=== PATIENT | female | born 1945 | race Caucasian/White ===

== ENCOUNTER 2020-05-26 14:25 | Outpatient (REF) | payer MEDICARE, SELFPAY ==
--- NOTE | 2020-05-26 14:31 | XR_ITS ---
EXAMINATION: XR KNEE, RIGHT CLINICAL INFORMATION: Right knee pain COMPARISON: Right lower leg x-ray November 2009 TECHNIQUE: Four views of the right knee. FINDINGS: Bone alignment is normal. No fracture or dislocation is seen. Joint spaces are normal. There is no joint effusion. There is evidence of atherosclerotic disease. XR/XR knee RT 4V IMPRESSION: Atherosclerotic disease otherwise unremarkable exam.
== END 2020-05-26 14:26 | disposition home or self-care (01) ==
LOC: HO.HMGCX 14:25
PROVIDERS: PCP Family Medicine; Visit Provider Nurse Practitioner Family
DX: M25.561 Pain in right knee (principal)
CPT/HCPCS: 73564

== ENCOUNTER → 2020-06-12 10:02 | Outpatient (BNVA) | payer MEDICARE, SELFPAY | PROVIDERS: PCP Family Medicine; Visit Provider Urology | DX: N30.10 Interstitial cystitis (chronic) without hematuria (principal) | CPT/HCPCS: 51798; 81002; 99212 ==

== ENCOUNTER → 2020-11-11 12:58 | Outpatient (BNVA) | payer MEDICARE, SELFPAY | PROVIDERS: PCP Family Medicine; Referring Provider Family Medicine; Visit Provider Internal Medicine Cardiovascular Disease | DX: I25.10 Atherosclerotic heart disease of native coronary artery without angina pectoris (principal); I51.81 Takotsubo syndrome; I10 Essential (primary) hypertension | CPT/HCPCS: 93005; 99212 ==

== ENCOUNTER → 2020-12-12 09:14 | Outpatient (BNVA) | payer MEDICARE, SELFPAY | PROVIDERS: PCP Family Medicine | DX: N30.10 Interstitial cystitis (chronic) without hematuria (principal) | CPT/HCPCS: 99212 ==

== ENCOUNTER → 2020-12-15 11:00 | Outpatient (BNVA) | payer MEDICARE, SELFPAY | PROVIDERS: PCP Family Medicine | CPT/HCPCS: Q3014 ==

== ENCOUNTER 2021-03-17 09:24 | Outpatient (REF) | payer MEDICARE, SELFPAY | END 2021-03-17 09:25 | disposition home or self-care (01) | LOC: HO.LAB 09:24 | PROVIDERS: PCP Family Medicine | DX: N30.10 Interstitial cystitis (chronic) without hematuria (principal) | CPT/HCPCS: 51798; 87086; 87088; 87186; 99212 ==

== ENCOUNTER → 2021-05-19 09:47 | Outpatient (BNVA) | payer MEDICARE, SELFPAY | PROVIDERS: PCP Family Medicine | DX: N30.10 Interstitial cystitis (chronic) without hematuria (principal) | CPT/HCPCS: 51798; 81002; 99212 ==

== ENCOUNTER → 2021-07-03 14:48 | Outpatient (BNVA) | payer MEDICARE, SELFPAY | PROVIDERS: PCP Family Medicine | DX: N30.10 Interstitial cystitis (chronic) without hematuria (principal) | CPT/HCPCS: 51798; 99212 ==

== ENCOUNTER → 2021-07-30 13:04 | Outpatient (BNVA) | payer MEDICARE, SELFPAY | PROVIDERS: PCP Family Medicine | DX: N30.10 Interstitial cystitis (chronic) without hematuria (principal); R35.1 Nocturia | CPT/HCPCS: Q3014 ==

== ENCOUNTER → 2021-10-15 12:51 | Outpatient (REF) | payer MEDICARE, SELFPAY ==
--- NOTE | 2021-10-15 12:53 | CA_ITS ---
Transthoracic Echocardiogram Patient (Last, First, Middle): Shana Lopez L Gender: Female Date of : 1945 Age: 76 Procedure Date: 10/15/2021 Procedure Type: Transthoracic Echocardiogram Location: OP Height: 139.7 cm Weight: 39.92 kg BSA: 1.24 m2 Heart Rate: bpm BP: 130 / 62 mmHg Labor Delivery Specialist: IAN Referring MD: Chin Lind MD Plastic Frame Inserter: Chin Lind MD Symptoms: I51.81 - Takotsubo syndrome Study Quality: Adequate ECG Rhythm: Sinus Conclusions: - 1. Normal LV systolic function with impaired relaxation filling pattern next 2. Normal cardiac valvular Doppler 3. Normal RV systolic pressure 4. No gross pericardial effusion Findings Left Ventricle Normal left ventricular size, thickness, and systolic function. The visually estimated ejection fraction is between 65-70%. Spectral Doppler is indicative of an impaired relaxation filling pattern. E/E prime ratio is between 8 and 15 consistent with indeterminate filling pressures. Right Ventricle Normal right ventricular cavity size and systolic function. Atria Both atria are normal in size. Interatrial shunt cannot be excluded. Aortic Valve The aortic valve structure and function is likely normal. There is no aortic valve stenosis. There is no aortic valve regurgitation. Mitral Valve Normal mitral valve structure and function. There is trace mitral valve regurgitation. There is no mitral valve stenosis. Pulmonic Valve The pulmonic valve was not well visualized. Tricuspid Valve Likely normal tricuspid valve structure and function. There is trace tricuspid valve regurgitation. The right ventricular systolic pressure is normal. The right ventricular systolic pressure is 25 mmHg. Normal right atrial pressure. There is no evidence of pulmonary hypertension. Great Vessels All visible segments of the aorta are normal in size. The pulmonary artery was not well visualized. Venous The inferior vena cava is normal in size and collapses greater than 50% with inspiration. Pericardium/Pleural There is no evidence of pericardial effusion. Measurements 2D Linear Measurements IVSd: 0.69 0.6-0.9/0.6-1.0 cm LVIDd: 4.04 3.9-5.3/4.2-5.9 cm LVIDd Index: 3.26 2.4-3.2/2.2-3.1 cm/m2 LVIDs: 2.83 2.0-3.6 cm LVPWd: 0.82 0.7-1.1 cm LA Diam: 2.70 2.7-3.8/3.0-4.0 cm LAIDs Index: 2.18 1.5-2.3 cm/m2 LV Mass: 109.22 67-162/88-224 g LV Mass Index: 88.08 43-95/49-115 g/m2 LVOT Diam: 1.70 3.0+(-)1.3 cm 2D Systolic Function EF 4C: 72.20 >55% EF 2C: 64.40 >55% EF BiP: 68.30 >55% Mitral Valve MV Pk E: 0.76 MV PK A: 0.58 MV Decel Time: 239.00 E/A: 1.30 E'Lateral: 8.70 E'Medial: 7.83 E/E' Med: 9.70 E/E' Lat: 8.80 PHT: 70.00 MVA PHT: 3.14 Decel Woodruff: 3.19 Aortic Valve AoV Pk Micheal: 1.07 AoV Mn Micheal: 0.82 AoV VTI: 0.30 AoV Pk Grad: 5.00 Aov Mn Grad: 3.00 TORRI Cont.VTI: 1.42 LVOT LVOT Pk Micheal: 0.80 LVOT Mn Micheal: 0.50 LVOT VTI: 0.19 LVOT Pk Grad: 3.00 LVOT Mn Grad: 1.00 LVOT Diam: 1.70 LVOT Area: 2.27 Diastolic Function MV Pk E: 0.76 MV Pk A: 0.58 E/A: 1.30 E'Medial: 7.83 E/E' Med: 9.70 E' Laterial: 8.70 E/E' Lat: 8.80 Right Ventricle TAPSE (mm): 24.30 TVS' Micheal: 10.20 Tricuspid Valve TR Pk Micheal: 2.33 TR Pk Grad: 22.00 RA Press: 3.00 RVSP: 25.00 Great Vessels Aorta Sinus of Valsalva: 2.89 2.0-3.[address] Ridge: 2.26 1.7-3.4 cm Ao Asc: 2.70 2.1-3.4 cm Ao Arch: 2.70 Updated in Other Vendor System with Status of Final Chin Lind MD electronically signed on 10/16/2021 3:08:45 PM with status of Final
== END ==
LOC: HO.CARD 12:51
PROVIDERS: PCP Family Medicine; Visit Provider Internal Medicine Cardiovascular Disease
DX: I51.81 Takotsubo syndrome (principal)
CPT/HCPCS: 93306

== ENCOUNTER → 2021-11-17 13:14 | Outpatient (BNVA) | payer MEDICARE, SELFPAY | PROVIDERS: PCP Family Medicine; Referring Provider Family Medicine; Visit Provider Internal Medicine Cardiovascular Disease | DX: I25.10 Atherosclerotic heart disease of native coronary artery without angina pectoris (principal); I51.81 Takotsubo syndrome; Z79.899 Other long term (current) drug therapy | CPT/HCPCS: 93005; 99212 ==

== ENCOUNTER → 2021-12-14 13:39 | Outpatient (BNVA) | payer MEDICARE, SELFPAY | PROVIDERS: PCP Family Medicine | DX: R35.0 Frequency of micturition (principal) | CPT/HCPCS: 51798; 99212 ==

== ENCOUNTER 2022-02-27 11:05 | Outpatient (REF) | payer MEDICARE, SELFPAY ==
[2022-02-27 13:58] LABS: Appearance Urine Clear; Color Urine Dark Yellow; Glucose Urine UA Negative (Negative); Leukocyte Esterase Urine Negative (Negative); Nitrite Urine Positive (Negative); PH 6.5 (5.0-9.0); UMIC TRIGGER UA YES; Urine Blood Negative (Negative); Urine Ketones Negative (Negative); Urine Protein Negative (Neg-Trace)
[2022-02-27 14:22] LABS: Bacteria Urine None Seen (None Seen); Hyaline Casts Urine 0-2 /LPF (0-2); RBC Urine 0-2 /HPF (0-2); Squamous Epithelial Cell Urine 0-2 /HPF (0-2); WBC Urine 0-5 /HPF (0-5)
== END 2022-02-27 11:06 | disposition home or self-care (01) ==
LOC: HO.HMGCLDS 11:05
PROVIDERS: Visit Provider Urology
DX: R35.0 Frequency of micturition (principal)
CPT/HCPCS: 81001; 87086

== ENCOUNTER → 2022-04-01 10:55 | Outpatient (BNVA) | payer MEDICARE, SELFPAY | PROVIDERS: PCP Family Medicine; Visit Provider Urology | DX: R35.0 Frequency of micturition (principal); N30.10 Interstitial cystitis (chronic) without hematuria | CPT/HCPCS: 51798; 99212 ==

== ENCOUNTER 2022-05-04 10:18 | Outpatient (REF) | payer MEDICARE, SELFPAY ==
--- NOTE | ~2022-05-04 | US_ITS ---
EXAMINATION: US RETROPERITONEAL LIMITED (RENAL ONLY) CLINICAL INFORMATION: Frequency of micturition. COMPARISON: Ultrasound abdomen of 02/13/2009 TECHNIQUE: Real-time imaging of the kidneys. FINDINGS: RIGHT KIDNEY: 8.7 x 3.6 x 4.1 cm (SAG x AP x TRV). No hydronephrosis. No renal calculi. Limited visualization. LEFT KIDNEY: 8.8 x 3.8 x 4.8 cm (SAG x AP x TRV). No hydronephrosis. No renal calculi. Limited visualization. Multiple parapelvic cysts, largest 2.1 x 0.9 x 2.2 cm appears simple. US/US renal BI IMPRESSION: 1. Multiple left parapelvic cysts. 2. No hydronephrosis. No renal calculi. Limited visualization.
== END 2022-05-04 10:19 | disposition home or self-care (01) ==
LOC: HO.HMGCX 10:18
PROVIDERS: PCP Family Medicine; Visit Provider Urology
DX: R35.0 Frequency of micturition (principal)
CPT/HCPCS: 76775

== ENCOUNTER → 2022-06-02 13:42 | Outpatient (BNVA) | payer MEDICARE, SELFPAY | PROVIDERS: PCP Family Medicine; Visit Provider Urology | DX: N30.10 Interstitial cystitis (chronic) without hematuria (principal); R35.0 Frequency of micturition; R39.89 Other symptoms and signs involving the genitourinary system; Z79.899 Other long term (current) drug therapy | CPT/HCPCS: Q3014 ==

== ENCOUNTER 2022-07-20 13:21 | Outpatient (REF) | payer MEDICARE, SELFPAY ==
--- NOTE | ~2022-07-20 | XR_ITS ---
EXAMINATION: XR RIBS, LEFT CLINICAL INFORMATION: Left front wall chest contusion. COMPARISON: Chest radiograph dated 03/15/2019. TECHNIQUE: 3 views of the left ribs were obtained along with a PA view of the chest. A skin marker overlies the left chest. FINDINGS: Lungs are clear. No consolidation, pneumothorax, or pleural effusion. The cardiomediastinal silhouette and pulmonary vasculature are normal. Osseous structures are unremarkable. Deformity is seen in the lateral left ninth rib. XR/XR ribs LT min 3V w CXR1V IMPRESSION: 1. No acute cardiopulmonary process. 2. Deformity in the lateral left ninth rib is appearance of an old healed fracture but was not seen on the 2019 study. Correlate with physical exam and trauma history.
== END 2022-07-20 13:22 | disposition home or self-care (01) ==
LOC: HO.HMGCX 13:21
PROVIDERS: PCP Family Medicine; Visit Provider Internal Medicine
DX: S20.212A Contusion of left front wall of thorax, initial encounter (principal)
CPT/HCPCS: 71101

== ENCOUNTER 2022-11-04 14:02 | Outpatient (REF) | payer MEDICARE, SELFPAY ==
--- NOTE | ~2022-11-04 | MR_ITS ---
EXAMINATION: MR THORACIC SPINE WITHOUT CONTRAST CLINICAL INFORMATION: 77-year-old with mid back pain and history of fall 07/20/2022. COMPARISON: 09/20/2011 x-ray report. Images not currently available. TECHNIQUE: MRI of the thoracic spine was obtained using routine sequences without contrast. FINDINGS: ALIGNMENT: There is sinusoidal thoracolumbar scoliotic curvature, slightly convex to the left at T8-T9 and convex to the right at T12-L1. There is grjb-xk-fyssgmge thoracic kyphosis centered at T6-T7. VERTEBRAL BODIES AND BONE MARROW: There is a compression fracture of the T7 vertebral body, with approximately 60% loss of height anteriorly, with mild marrow edema noted consistent with a nonhealed, likely a benign fracture. There is mild loss of height along the superior endplate of T6 consistent with a chronic, mild compression fracture deformity which was noted on the previous x-rays. Remaining vertebral body heights are well maintained. No suspicious marrow replacing process or other bone marrow edema. DISC SPACES AND ENDPLATES: There is multilevel disc desiccation, with mild degrees of intervertebral disc space height loss between T3-T4 and at T10-T11 inclusive, with minor degrees of multilevel anterior marginal spondylosis at these levels. Tiny Schmorl's nodes are noted at T9-T10. There is intradiscal vacuum disc phenomenon at T6-T7. PARASPINAL SOFT TISSUES: The paravertebral soft tissues appear unremarkable. No paravertebral soft tissue masses or fluid collections. There are probable small cysts in the liver. The visualized intrathoracic soft tissues demonstrate some nonspecific pleural-parenchymal changes along the posterior left upper lobe which could be postinflammatory. SPINAL CORD: The thoracic spinal cord is normal in morphology, caliber and signal intensity throughout. The conus terminates at the L1-L2 level. SPINAL LEVELS: C7-T1 through T4-T5: Unremarkable. T5-T6: Tiny central disc protrusion with minimal indentation of the ventral thecal sac without cord impingement or canal stenosis. T6-T7: Trace retropulsion of the posterior cortex of the compressed T7 vertebral body noted with slight indentation of the ventral thecal sac without cord impingement or canal stenosis. T7-T8: Tiny central to right paramedian/posterolateral disc protrusion without significant canal stenosis or cord impingement. T8-T9: Mild right-sided facet arthropathy noted with mild foraminal narrowing. T9-T10: Mild facet arthrosis bilaterally with partial ankylosis of the left facet joint with mild bilateral foraminal narrowing. T10-T11: Mild right and feam-vr-makugwml left-sided facet arthropathy noted with gnfj-af-pryxhswb left-sided foraminal narrowing. T11-T12: Small posterior disc osteophyte complex without cord impingement or canal stenosis. T12-L1: Tiny posterior disc osteophyte complex. MR/MR thoracic spine wo con IMPRESSION: 1. Nonhealed compression fracture of the T7 vertebral body as described above with trace retropulsion of the posterior cortex without spinal cord impingement. Likely a benign osteoporotic compression fracture. Correlate with bone mineral density. 2. Mild chronic compression fracture deformity of T6. 3. Thoracolumbar scoliotic curvature as described above with xbtv-qt-nnzrepwj thoracic kyphosis centered at T6-T7. 4. Mild multilevel DDD and spondylosis with tiny central disc protrusions at T5-T6 and T7-T8 and icrb-hw-tosnciyc degrees of multilevel facet arthropathy with tnwe-hw-irycmldw left-sided foraminal narrowing at T10-T11. 5. Normal appearance to the thoracic spinal cord. 6. Probable small cysts in the liver which can be confirmed sonographically if clinically warranted. Probable parapelvic renal cysts in the left kidney. See previous ultrasound report of 05/05/2022.
== END 2022-11-04 14:03 | disposition home or self-care (01) ==
LOC: HO.MRI 14:02
PROVIDERS: PCP Family Medicine; Visit Provider Nurse Practitioner Family
DX: S22.060A Wedge compression fracture of T7-T8 vertebra, initial encounter for closed fracture (principal); X58.XXXA Exposure to other specified factors, initial encounter; Y93.9 Activity, unspecified; Y92.9 Unspecified place or not applicable; Y99.9 Unspecified external cause status
CPT/HCPCS: 72146

== ENCOUNTER 2022-11-29 09:33 | Outpatient (AMB) | payer MEDICARE, SELFPAY ==
--- NOTE | 2022-11-29 07:45 | A.OFFVIS_ITS ---
Intake Vital Signs 11/29/22 09:45 Height 4 ft 7 in Intake Visit Reasons: Interstitial cystitis- follow up Intake Note: Shana 77 year old female presents today for a follow up of interstitial cystitis. Allergies morphine [Morphine] Allergy (Mild, Verified 11/29/22 09:40) hives oxycodone [From PERCODAN] Allergy (Mild, Verified 11/29/22 09:40) Rash tetracycline [Tetracycline] Allergy (Mild, Verified 11/29/22 09:40) rash acetaminophen [Percocet] Allergy (Unknown, Verified 11/29/22 09:40) Rash aspirin [From Percodan] Allergy (Unknown, Verified 11/29/22 09:40) Rash diphtheria,pertussis (acell),tetanu Allergy (Unknown, Verified 11/29/22 09:40) Rash mirabegron [Myrbetriq] Allergy (Unknown, Verified 11/29/22 09:40) facial/ eye itching Penicillins [PENICILLINS] Allergy (Unknown, Verified 11/29/22 09:40) Rash HPI HPI Comments History of Present Illness Details Shana is a 77-year-old female who presents to the office for a follow- up for her interstitial cystitis. 11/29/22-- Shana is a 77-year-old female who is followed for interstitial cystitis with lower urinary tract symptoms of urgency and frequency. She has been prescribed?Oxybutynin 10 mg to take in the morning and VESIcare 10 mg to take at bedtime.? She had a televisit last on 06/02/22. At that time, I reviewed the renal ultrasound that was done on 05/04/22 and noted mainly multiple left parapelvic cysts. The patient states that she has been taking both the medications and notes that sometimes she does not completely empty her bladder. She still complains of intermittent urinary urgency. Evaluation today?UA ? leuk negative, blood negative. There is a moderate post void residual of 185 mL. Plan: Initially, we are going to decrease Oxybutynin from 10 mg to 5 mg and continue the VESIcare at the current dose. Depending on how she does, we then may stay with the Oxybutynin or eventually discontinue it. Monitor her bladder scan PVR. Follow up in 3 months. [facility] Medical History Anxiety CAD (coronary artery disease) Frequent urination HTN (hypertension) Interstitial cystitis Interstitial cystitis Nocturia Renal mass Takotsubo cardiomyopathy Urinary frequency Surgical History History of section History of removal of ovarian cyst Hx of appendectomy Family History Mother Heart disease Stroke Epilepsia Father Heart disease Social History Household Members: Spouse Alcohol intake: never Patient Tobacco Use Status: Former Tobacco user Quit Date: 1979 Smoked: 18 +/- Review of Systems Const All systems reviewed & are unremarkable except as noted in HPI and below Reports no additional complaints Eyes Reports no additional complaints ENT Reports no additional complaints Card Denies dyspnea Resp Denies cough and Denies dyspnea GI Reports no additional complaints Reports no additional complaints Musc Reports no additional complaints Skin/Breast Denies rash and Denies unusual bruising Neuro Reports no additional complaints Psych Reports no additional complaints Endo Reports no additional complaints King/Lymph Reports no additional complaints Aller/Immun Reports no additional complaints Physical Exam Const General: cooperative, healthy appearing and no acute distress Orientation/consciousness: patient oriented x3 HEENT Head: Yes normal to inspection, Yes normocephalic and Yes atraumatic Eyes Conjunctivae: conjunctivae normal Neck Neck: Yes normal visual inspection and Yes trachea midline Chest Chest palpation & inspection: normal inspection of the chest Resp Effort & Inspection: normal respiratory effort Cardio Rate: regular rate GI Inspection: Yes normal to inspection Skin General skin exam: no rashes or lesions noted Neuro General: patient oriented x3 Psych Appearance: grossly normal Office Procedures Post Void Residual Post Residual Void Post Void Residual (PVR): [id number] Void Residual by ultrasound Results AMB Urinalysis, Automated UA Leukoctes 0 Geovanna/uL Last Edit by JULIETA Paiz on 11/29/22 09:54 UA Nitrite Negative Last Edit by JULIETA Paiz on 11/29/22 09:54 UA Urobilinogen 0.2 mg/dL Last Edit by JULIETA Paiz on 11/29/22 09:54 UA Protein 15 mg/dL Last Edit by Beverly Aquino A on 11/29/22 09:54 UA pH 5.5 Last Edit by Beverly Aquino Renee on 11/29/22 09:54 UA Blood 0 Juan David/uL Last Edit by Beverly Aquino A on 11/29/22 10:05 UA Specific [place] 1.030 Last Edit by Beverly Aquino A on 11/29/22 09:5 4 UA Ketone Negative Last Edit by Beverly Aquino A on 11/29/22 09:54 UA Bilirubin 0 mg/dL Last Edit by Beverly Aquino A on 11/29/22 09:54 UA Glucose 0 mg/dL Last Edit by Beverly Aquino [facility] on 11/29/22 09:54 Results Reviewed Results Reviewed: Laboratory Last Values Urine pH (Auto) 5.5 11/29/22 09:51 Specific Ra[place] (Auto) 1.030 11/29/22 09:51 Urine Protein (Auto) 15 mg/dL 11/29/22 09:51 Glucose (UA)(Auto) 0 mg/dL 11/29/22 09:51 Urine Ketones (Auto) Negative 11/29/22 09:51 Urine Blood (Auto) 0 Juan David/uL 11/29/22 09:51 Urine Nitrite (Auto) Negative 11/29/22 09:51 Urine Bilirubin (Auto) 0 mg/dL 11/29/22 09:51 Urine Urobilinogen (Auto) 0.2 mg/dL 11/29/22 09:51 Leukocyte Esterase (Auto) 0 Geovanna/uL 11/29/22 09:51 Date: 05/04/22 FINDINGS: RIGHT KIDNEY: 8.7 x 3.6 x 4.1 cm (SAG x AP x TRV). No hydronephrosis. No renal calculi. Limited visualization. LEFT KIDNEY: 8.8 x 3.8 x 4.8 cm (SAG x AP x TRV). No hydronephrosis. No renal calculi. Limited visualization. Multiple parapelvic cysts, largest 2.1 x 0.9 x 2.2 cm appears simple. IMPRESSION: ? 1. Multiple left parapelvic cysts. ? 2. No hydronephrosis. No renal calculi. Limited visualization. Assessment & Plan Assessment & Plan (1) Urinary frequency: Code(s): R35.0 - Frequency of micturition (2) Interstitial cystitis: Code(s): N30.10 - Interstitial cystitis (chronic) without hematuria (3) Incomplete bladder emptying: Code(s): R33.9 - Retention of urine, unspecified Plan Initially, we are going to decrease Oxybutynin from 10 mg to 5 mg and continue the VESIcare at the current dose. Depending on how she does, we then may stay with the Oxybutynin or eventually discontinue it. Monitor her bladder scan PVR. Follow up in 3 months. Orders: Orders AMB Urinalysis Automated Today Z13.9 - Encounter for screening, unspecified AMB Post Void Residual by ultrasound Today R35.0 - Frequency of micturition Medications: New oxybutynin chloride ER Oxybutynin 5 mg to replace oxybutynin 10 mg 5 mg PO DAILY 90 tabs 0RF Patient Instructions: The patient had an opportunity to ask questions regarding treatment plan. All questions were answered. Imaging, Laboratory studies and physical exam results were discussed and reviewed in detail. No major barriers to understanding were identified. The patient expressed understanding and agreement with the above treatment plan. The patient is aware they should contact our office by phone for worsening of their current condition or the appearance of new symptoms. Compliance is encouraged with any medications and followup testing that is ordered. It is a privilege to be allowed the opportunity to participate in the urologic care of your patient. If you have any questions or concerns regarding treatment for the above conditions please do not hesitate to contact me. The office telephone contact is [phone]. This note is constructed in part using voice recognition software. While every effort has been made to ensure accuracy digital photographer errors may have been included. Yours sincerely, Kiran Pedroza MD Coding Level of Care Code Est Pt Level 4 (55367) Diagnoses Urinary frequency R35.0 Interstitial cystitis N30.10 Incomplete bladder emptying R33.9 CPT Codes Post Residual Void - PVR CPT Code: 54967-Onba Void Residual by ultrasound ([id number])
== END 2022-11-29 10:24 | disposition home or self-care (01) ==
PROVIDERS: Visit Provider Urology
DX: R35.0 Frequency of micturition (principal); N30.10 Interstitial cystitis (chronic) without hematuria; R33.9 Retention of urine, unspecified
CPT/HCPCS: 99214

== ENCOUNTER → 2022-11-29 09:33 | Outpatient (BNVA) | payer MEDICARE, SELFPAY | PROVIDERS: Visit Provider Urology | DX: N30.10 Interstitial cystitis (chronic) without hematuria (principal); R35.0 Frequency of micturition; R33.9 Retention of urine, unspecified; Z79.899 Other long term (current) drug therapy | CPT/HCPCS: 51798; 99212 ==

== ENCOUNTER 2023-01-03 11:20 | Outpatient (REF) | payer MEDICARE, SELFPAY ==
[2023-01-03 12:21] LABS: Appearance Urine Clear; Color Urine Dark Yellow; Glucose Urine UA Negative (Negative); Leukocyte Esterase Urine Negative (Negative); Nitrite Urine Positive (Negative); PH 5.5 (5.0-9.0); UMIC TRIGGER UA YES; Urine Blood Negative (Negative); Urine Ketones Negative (Negative); Urine Protein Negative (Neg-Trace)
[2023-01-03 12:48] LABS: Bacteria Urine None Seen (None Seen); Hyaline Casts Urine 0-2 /LPF (0-2); RBC Urine 0-2 /HPF (0-2); Squamous Epithelial Cell Urine 0-2 /HPF (0-2); WBC Urine 0-5 /HPF (0-5)
== END 2023-01-03 11:21 | disposition home or self-care (01) ==
LOC: HO.LAB 11:20
PROVIDERS: PCP Family Medicine; Visit Provider Urology
DX: R35.0 Frequency of micturition (principal)
CPT/HCPCS: 81001; 87086

== ENCOUNTER 2023-02-28 09:35 | Outpatient (AMB) | payer MEDICARE, SELFPAY ==
--- NOTE | 2023-02-28 09:36 | A.OFFVIS_ITS ---
Intake Intake Visit Reasons: 3m/PVR Intake Note: Patient presents today for a follow-up on Incomplete Bladder Emptying, 3mo PVR: Pt c/m pressure & urgency Meds- Oxybutynin Allergies to Antibiotic- Penicillin Blood Thinner- Aspirin PVR-0 Shoveler Required: No Accompanied by: Self / Same As Patient Allergies morphine [Morphine] Allergy (Mild, Verified 02/28/23 09:41) hives oxycodone [From PERCODAN] Allergy (Mild, Verified 02/28/23 09:41) Rash tetracycline [Tetracycline] Allergy (Mild, Verified 02/28/23 09:41) rash acetaminophen [Percocet] Allergy (Unknown, Verified 02/28/23 09:41) Rash aspirin [From Percodan] Allergy (Unknown, Verified 02/28/23 09:41) Rash diphtheria,pertussis (acell),tetanu Allergy (Unknown, Verified 02/28/23 09:41) Rash mirabegron [Myrbetriq] Allergy (Unknown, Verified 02/28/23 09:41) facial/ eye itching Penicillins [PENICILLINS] Allergy (Unknown, Verified 02/28/23 09:41) Rash Medication List - Last Reconciled 02/28/23 by Kiran Pedroza MD acetaminophen-codeine 300-15 mg 1 tab PO BID PRN alprazolam 0.25 mg PO BID PRN amlodipine 10 mg PO DAILY aspirin (Adult Low Dose Aspirin) 81 mg PO DAILY atorvastatin 40 mg PO DAILY calcitonin (salmon) 200 unit/actuation 1 spray intranasal (ALT) DAILY carvedilol 3.125 mg PO BID famotidine 20 mg PO DAILY PRN nitroglycerin mg sublingual vibegron (Gemtesa) 75 mg PO DAILY HPI HPI Comments History of Present Illness Details Shana is a 77-year-old female who presents today to the office for a follow-up. 02/28/23? She is followed today for lower urinary tract symptoms of urgency and frequency related to IC. She was last seen by me on 11/29/22 for incomplete bladder emptying. Decreased Oxybutynin from 10 mg to 5 mg and she was advised to continue the VESIcare at the current dose at that time. She was advised to monitor her bladder scan PVR, and follow up in 3 months during that time.? I reviewed the urine culture results from 01/03/23 revealed no bacterial growth.? She still has significant bladder pressure and urgency. She states that she is getting up 2 times at night to urinate. I have discussed that I want to change her medications. Vesicare and oxybutynin can affect the mental status changes in elderly. Discussed the importance of avoiding dietary irritants like caffeine, and spicy foods. Review of charts: Last visit: 11/29/22-- I reviewed the renal ultrasound that was done on 05/04/22 and noted mainly multiple left parapelvic cysts. Evaluation today?UA ? leuk negative, blood negative. There is a moderate post void residual of 185 mL. 02/28/23: Evaluation today?UA?leukocytes : negative; blood: negative; bladder scan PVR: 0 mL. 02/28/23: Plan: Gemtesa 75 mg daily was ordered. Discontinue Vesicare and oxybutynin. Follow-up in 8 weeks via Tele-health visit. [facility] Medical History Urinary frequency HTN (hypertension) Takotsubo cardiomyopathy CAD (coronary artery disease) Interstitial cystitis Nocturia Frequent urination Anxiety Interstitial cystitis Renal mass Surgical History Hx of appendectomy History of removal of ovarian cyst History of section Family History Mother Heart disease Stroke Epilepsia Father Heart disease Social History Household Members: Spouse Alcohol intake: never Patient Tobacco Use Status: Former Tobacco user Quit Date: 1979 Years Smoked: 18 +/- Review of Systems Const All systems reviewed & are unremarkable except as noted in HPI and below Reports no additional complaints Eyes Reports no additional complaints ENT Reports no additional complaints Card Denies dyspnea Resp Denies cough and Denies dyspnea GI Reports no additional complaints Reports no additional complaints Musc Reports no additional complaints Skin/Breast Denies rash and Denies unusual bruising Neuro Reports no additional complaints Psych Reports no additional complaints Endo Reports no additional complaints King/Lymph Reports no additional complaints Aller/Immun Reports no additional complaints Physical Exam Const General: cooperative, healthy appearing and no acute distress Orientation/consciousness: patient oriented x3 HEENT Head: Yes normal to inspection, Yes normocephalic and Yes atraumatic Eyes Conjunctivae: conjunctivae normal Neck Neck: Yes normal visual inspection and Yes trachea midline Chest Chest palpation & inspection: normal inspection of the chest Resp Effort & Inspection: normal respiratory effort Cardio Rate: regular rate GI Inspection: Yes normal to inspection Skin General skin exam: no rashes or lesions noted Neuro General: patient oriented x3 Psych Appearance: grossly normal Office Procedures Post Void Residual Post Residual Void Post Void Residual (PVR): 0 [id number] Void Residual by ultrasound Results AMB Urinalysis, Automated UA Leukoctes 0 Geovanna/uL Last Edit by JULIETA Basurto on 02/28/23 09:53 UA Nitrite Negative Last Edit by JULIETA Basurto on 02/28/23 09:53 UA Urobilinogen 0.2 mg/dL Last Edit by JULIETA Basurto on 02/28/23 09:5 3 UA Protein 0 mg/dL Last Edit by JULIETA Basurto on 02/28/23 09:53 UA pH 6.0 Last Edit by JULIETA Basurto on 02/28/23 09:53 UA Blood 0 Juan David/uL Last Edit by JULIETA Basurto on 02/28/23 09:53 UA Specific [place] 1.015 Last Edit by JULIETA Basurto on 02/28/23 09: 53 UA Ketone Negative Last Edit by JULIETA Basurto on 02/28/23 09:53 UA Bilirubin 0 mg/dL Last Edit by JULIETA Basurto on 02/28/23 09:53 UA Glucose 0 mg/dL Last Edit by JULIETA Basurto on 02/28/23 09:53 Results Reviewed Results Reviewed: Laboratory Last Values Urine pH (Auto) 6.0 02/28/23 09:46 Specific [place] (Auto) 1.015 02/28/23 09:46 Urine Protein (Auto) 0 mg/dL 02/28/23 09:46 Glucose (UA)(Auto) 0 mg/dL 02/28/23 09:46 Urine Ketones (Auto) Negative 02/28/23 09:46 Urine Blood (Auto) 0 Juan David/uL 02/28/23 09:46 Urine Nitrite (Auto) Negative 02/28/23 09:46 Urine Bilirubin (Auto) 0 mg/dL 02/28/23 09:46 Urine Urobilinogen (Auto) 0.2 mg/dL 02/28/23 09:46 Leukocyte Esterase (Auto) 0 Geovanna/uL 02/28/23 09:46 Ordered:? Urine Culture? Procedure?Result?Verified?Site ? Urine Culture? Final?01/04/23-08 ? No growth. Assessment & Plan Assessment & Plan (1) Urinary frequency: Code(s): R35.0 - Frequency of micturition (2) Interstitial cystitis: Code(s): N30.10 - Interstitial cystitis (chronic) without hematuria Plan Gemtesa 75 mg daily was ordered. Discontinue Vesicare and oxybutynin.? Follow-up in 8 weeks via Tele-health visit.? Orders: Orders AMB Urinalysis Automated Today Z13.9 - Encounter for screening, unspecified AMB Post Void Residual by ultrasound Today N39.8 - Other specified disorders of urinary system Medications: New vibegron (Gemtesa) Gemtesa to replace oxybutynin and vesicare 75 mg PO DAILY 30 tabs 2RF Patient Instructions: The patient had an opportunity to ask questions regarding treatment plan. All questions were answered. Imaging, Laboratory studies and physical exam results were discussed and reviewed in detail. No major barriers to understanding were identified. The patient expressed understanding and agreement with the above sapphire atment plan.? ? ? The patient is aware they should contact our office by phone for worsening of their current condition or the appearance of new symptoms. Compliance is encouraged with any medications and followup testing that is ordered.? ? ? It is a privilege to be allowed the opportunity to participate in the urologic care of your patient. If you have any questions or concerns regarding treatment for the above conditions please do not hesitate to contact me. The office telephone contact is [phone].? ? ? This note is constructed in part using voice recognition software. While every effort has been made to ensure accuracy industrial refrigeration mechanic errors may have been included.? ? ? Yours sincerely,? ? ? Kiran Pedroza MD? Coding Level of Care Code Est Pt Level 4 (22422) Diagnoses Urinary frequency R35.0 Interstitial cystitis N30.10 CPT Codes Post Residual Void - PVR CPT Code: 37300-Snim Void Residual by ultrasound ([id number])
== END 2023-02-28 10:14 | disposition home or self-care (01) ==
PROVIDERS: PCP Family Medicine; Visit Provider Urology
DX: R35.0 Frequency of micturition (principal); N30.10 Interstitial cystitis (chronic) without hematuria; Z13.9 Encounter for screening, unspecified
CPT/HCPCS: 99214

== ENCOUNTER → 2023-02-28 09:35 | Outpatient (BNVA) | payer MEDICARE, SELFPAY | PROVIDERS: PCP Family Medicine; Visit Provider Urology | DX: R35.0 Frequency of micturition (principal); N30.10 Interstitial cystitis (chronic) without hematuria | CPT/HCPCS: 51798; 81003; 99212 ==

== ENCOUNTER 2023-03-10 12:07 | Outpatient (AMB) | payer MEDICARE, SELFPAY ==
[2023-03-10 13:55] VITALS: BP 110/80; PULSE 72; TEMP 36.4; O2SAT 98; BMI 18.2
--- NOTE | 2023-03-10 13:55 | MHC.OFFWIV ---
Intake Vital Signs 03/10/23 13:55 Height 4 ft 7 in Weight 78 lb 2 oz BMI 18.2 BP 110/80 Blood Pressure Location Rt brachial Position Sitting Pulse 72 Pulse Source Pulse Oximeter Temp 97.5 F Temp Source Temporal Artery Scan Pulse Oximetry (%) 98 Oxygen Delivery Method Room Air Intake Visit Reasons: EST/vertigo/lobby Intake Note: Pt presents to the office today for c/o vertigo that started a week ago. Pt states she is also having left ear pain that started this morning. Patient Tobacco Use Status: Former Tobacco user Quit Date: 1979 Allergies morphine [Morphine] Allergy (Mild, Verified 03/10/23 13:58) hives oxycodone [From PERCODAN] Allergy (Mild, Verified 03/10/23 13:58) Rash tetracycline [Tetracycline] Allergy (Mild, Verified 03/10/23 13:58) rash acetaminophen [Percocet] Allergy (Unknown, Verified 03/10/23 13:58) Rash aspirin [From Percodan] Allergy (Unknown, Verified 03/10/23 13:58) Rash diphtheria,pertussis (acell),tetanu Allergy (Unknown, Verified 03/10/23 13:58) Rash mirabegron [Myrbetriq] Allergy (Unknown, Verified 03/10/23 13:58) facial/ eye itching Penicillins [PENICILLINS] Allergy (Unknown, Verified 03/10/23 13:58) Rash HPI HPI Comments History of Present Illness Details Seven 7-year-old female diagnosed with vertigo on Tuesday started on meclizine with some improvement now presents with ear pain PFSH Medical History Urinary frequency HTN (hypertension) Takotsubo cardiomyopathy CAD (coronary artery disease) Interstitial cystitis Nocturia Frequent urination Anxiety Interstitial cystitis Renal mass Surgical History Hx of appendectomy History of removal of ovarian cyst History of section Family History Mother Heart disease Stroke Epilepsia Father Heart disease Social History Household Members: Spouse Alcohol intake: never Patient Tobacco Use Status: Former Tobacco user Quit Date: 1979 Years Smoked: 18 +/- Review of Systems ENT Reports otalgia Physical Exam Vital Signs: Last Vital Signs Temp 97.5 F 03/10/23 13:55 Pulse 72 03/10/23 13:55 BP 110/80 03/10/23 13:55 Pulse Ox 98 03/10/23 13:55 Oxygen Delivery Method Room Air 03/10/23 13:55 BMI result Body Mass Index 18.2 Const General: cooperative, healthy appearing, no acute distress and alert Orientation/consciousness: patient oriented x3 Limitations: no limitations HEENT Other: Wax in the left ear unable to visualize TM Head: Yes normal to inspection Ears: hearing grossly normal bilaterally General nose exam: Normal external nose present Resp Effort & Inspection: normal respiratory effort and able to speak in complete sentences Cardio Rate: regular rate Skin General skin exam: no rashes or lesions noted Neuro General: patient oriented x3 Extrem General: Yes normal to inspection Assessment & Plan Assessment & Plan (1) Cerumen impaction: Code(s): H61.20 - Impacted cerumen, unspecified ear Qualifiers: Laterality: left Qualified Code(s): H61.22 - Impacted cerumen, left ear Plan: Cerumen was removed ears were partially flushed but did induce vertigo. TMs were revision lysed Discharge instructions, follow up and treatment are discussed with patient in my usual fashion. Alternatives in treatment are also discussed. The patient will return for worsening symptoms or as needed. Advised that any labs/imaging ordered will be followed up on and contact made if further treatment needed. Counseled that patient's condition may require further evaluation and/or treatment. Symptoms of concern for worsening disorder discussed in detail in my customary manner. Patient does verbalize understanding of the plan, there are no apparent barriers to communication. The patient is given the opportunity to ask questions and have them answered to his/her satisfaction Patient Instructions: You were seen an evaluated in the urgent care for your ear blockage. Your ears were flushed and wax was manually removed. You may experience fullness for the next 24-48 hours. You may trail an anti-histamine such as benadry, ceterizine (Zyrtec), or claritin. Over the counter ear drops can be purchased to help soften your ear wax. You should return to urgent care or the emergency department if you experience any new or worsening symptoms such as worsen pain, fever, hearing loss or any concerning symptoms not mentioned above. Coding Level of Care Code Est Pt Level 3 (30857) Diagnoses Impacted cerumen of left ear H61.22 Laterality: left
== END 2023-03-10 14:37 | disposition home or self-care (01) ==
PROVIDERS: PCP Family Medicine; Visit Provider Physician Assistant
DX: H61.22 Impacted cerumen, left ear (principal)
CPT/HCPCS: 99213

== ENCOUNTER 2023-04-23 22:21 | Inpatient (IN) | payer MEDICARE, SELFPAY ==
--- NOTE | ~2023-04-23 | CT_ITS ---
EXAMINATION: CT PELVIS WITHOUT CONTRAST CLINICAL INFORMATION: Trauma. Suspect pubic rami fractures. COMPARISON: None available. TECHNIQUE: Helical scanning was performed with submillimeter collimation through the pelvis. Sagittal and coronal multiplanar 2-D reconstructions were obtained. This CT examination was performed using dose optimization techniques as appropriate, variously including the following: *Automated exposure control *Adjustment of mA and/or kV according to patient size (this includes techniques or standardized protocols for targeted exams where dose is matched to indication/reason for exam; i.e. extremities or head) *Use of iterative reconstruction technique DLP: 179 mGy-cm FINDINGS: PELVIS: Alexandre catheter is in place. There is air within the urinary bladder. The uterus and adnexal regions are grossly unremarkable. There are diverticula of the descending and the sigmoid colon without diverticulitis. Prominent right presacral musculature on the right. OSSEOUS STRUCTURES: The bony structures are osteopenic. There is a lucency through the superior pubic ramus on the right. There is a minimally displaced fracture inferior pubic ramus on the right. There is a minimally displaced fracture of the right sacrum. CT/CT pelvis wo IV con IMPRESSION: Lucency through the superior pubic ramus on the right is consistent with an undisplaced fracture. There is also a minimally displaced fracture inferior pubic ramus on the right. Minimally displaced right sacral fracture The right presacral musculature is prominent possibly related to a muscular injury. Diverticula of the descending and sigmoid colon without diverticulitis.
--- NOTE | ~2023-04-23 | XR_ITS ---
EXAMINATION: XR HIP, RIGHT CLINICAL INFORMATION: Fall. Pain. COMPARISON: None available. TECHNIQUE: Two views of the right hip. FINDINGS: The bony structures are osteopenic. There is mild bilateral hip degenerative change with mild loss of joint space and mild subchondral sclerosis. There is no fracture. The soft tissues are unremarkable. XR/XR hip RT w PEL1V IMPRESSION: No acute osseous abnormality.
[2023-04-23 23:03] VITALS: BP 173/67; PULSE 75; RESP 16; TEMP 36.7; O2SAT 97; BMI 52.5
[2023-04-24] VITALS (8 sets, daily range): BP systolic 131–193; BP diastolic 62–88; PULSE 70–103; RESP 14–18; TEMP 36.4–37.1; O2SAT 95–98; BMI 20.5
--- NOTE | 2023-04-24 00:30 | MHC.EDTECH ---
THIS PCT ASSUMED CARE OF PT ,PATIENT WAS MOVED FROM W/C TO [facility] ,WITH 2 ASST ,PT WAS AREA CLEANER INTO HOSPITAL GOWN ,VITALS TAKEN ,RN GEORGES IS AWARE OF HIGH BP ,BLOOD DRAWN INCLUDING TYPE AND SCREEN DRAW ,URINE SAMPLE COLLECTED AND SENT TO LAB ,PATIENT T BELONGING LIST DONE .
[2023-04-24 00:32] LABS: MANUAL DIFF FLAG NO
[2023-04-24 00:34] LABS: Basophils Percent Auto 0.4 % (0-2); Eosinophils Absolute Auto 0.1 X10*3/uL (0.0-0.4); Eosinophils Percent Auto 0.7 % (0-4); Hematocrit 39.2 % (37.0-47.0); Hemoglobin 12.1 g/dl (12.0-16.0); Imm Gran Abs Auto 0.07 X10*3/uL (0.00-0.03); Imm Gran Pct Auto 0.6 % (0.0-0.4); Lymphocytes Absolute Auto 1.3 X10*3/uL (1.2-4.9); Lymphocytes Percent Auto 11.1 % (20-40); Mean Corpuscular HGB Conc 30.9 g/dl (31.0-35.0); Mean Corpuscular Hemoglobin 25.6 pg (27.0-33.0); Mean Corpuscular Volume 82.9 fL (80.0-98.0); Mean Platelet Volume 9.9 fL (9.4-12.3); Monocytes Absolute Auto 0.5 X10*3/uL (0.1-1.2); Monocytes Percent Auto 4.1 % (2-11); Neutrophils Absolute Auto 9.5 x10*3/uL (2.0-8.3); Neutrophils Percent Auto 83.1 % (45-73); Platelet Count 164 X10*3/uL (160-400); Red Blood Count 4.73 X10*6/uL (4.20-5.50); Red Cell Distribution Width 12.9 % (11.0-16.0); White Blood Count 11.4 X10*3/uL (4.8-10.8)
--- NOTE | 2023-04-24 00:37 | ED_ITS ---
HPI - Fall General Chief Complaint: Fall Stated Complaint: fell 04/23 lower back leg pain Time Seen by Provider: 04/23/23 23:35 Source: patient Mode of arrival: ambulatory History of Present Illness HPI Narrative: 77-year-old female who presents after having fallen from a yellow latter and [employer] [place] and landed on her right side is now complaining of pain in the right hip that radiates down both legs but is worse on the right. Patient reports significant pain on ambulation. She denies any head strike or loss of consciousness. Related Data Home Medications Medication Instructions Recorded Confirmed alprazolam 0.25 mg tablet 0.25 mg PO BID PRN 05/26/20 02/28/23 amlodipine 10 mg tablet 10 mg PO DAILY 05/26/20 02/28/23 atorvastatin 40 mg tablet 40 mg PO DAILY 05/26/20 02/28/23 nitroglycerin 0.4 mg sublingual mg sublingual 05/26/20 02/28/23 tablet aspirin 81 mg tablet,delayed 81 mg PO DAILY 11/11/20 02/28/23 release (Adult Low Dose Aspirin) calcitonin (salmon) 200 1 spray intranasal (ALT) DAILY 11/11/20 02/28/23 unit/actuation nasal spray carvedilol 3.125 mg tablet 3.125 mg PO BID 11/17/21 02/28/23 famotidine 20 mg tablet 20 mg PO DAILY PRN 11/17/21 02/28/23 meclizine 25 mg tablet 25 mg PO TID PRN 03/10/23 Previous Rx's Medication Instructions Recorded acetaminophen 300 mg-codeine 15 mg 1 tab PO BID PRN pain #7 tabs 07/20/22 tablet vibegron 75 mg tablet (Gemtesa) 75 mg PO DAILY #30 tabs 02/28/23 Allergies Allergy/AdvReac Type Severity Reaction Status Date / Time morphine [Morphine] Allergy Mild hives Verified 03/10/23 13:58 oxycodone [From PERCODAN] Allergy Mild Rash Verified 03/10/23 13:58 tetracycline [Tetracycline] Allergy Mild rash Verified 03/10/23 13:58 acetaminophen [Percocet] Allergy Unknown Rash Verified 03/10/23 13:58 aspirin [From Percodan] Allergy Unknown Rash Verified 03/10/23 13:58 diphtheria,pertussis Allergy Unknown Rash Verified 03/10/23 13:58 (acell),taylor mirabegron [Myrbetriq] Allergy Unknown facial/ Verified 03/10/23 13:58 eye itching Penicillins [PENICILLINS] Allergy Unknown Rash Verified 03/10/23 13:58 Review of Systems 2 Review of Systems: Pertinent positives and negatives as stated in [facility] Past Medical History Source: nursing notes reviewed Medical History Urinary frequency HTN (hypertension) Takotsubo cardiomyopathy CAD (coronary artery disease) Interstitial cystitis Nocturia Frequent urination Anxiety Interstitial cystitis Renal mass Surgical History Hx of appendectomy History of removal of ovarian cyst History of section Family History Family History Mother Heart disease Stroke Epilepsia Father Heart disease Social History Social History Household Members: Spouse Alcohol intake: never Patient Tobacco Use Status: Former Tobacco user Quit Date: 1979 Smoked: 18 +/- Smoked in Last 30 Days: No Use of substances other than those prescribed or required for medical reasons: No Advance Directives: No Advance Directives Information Provided: No Physical Exam 2 Vital Signs: Vital Signs: Last Vital Signs Temp 98.6 F 04/24/23 00:12 Pulse 88 04/24/23 00:59 Resp 16 04/24/23 00:12 BP 193/80 H 04/24/23 00:12 Pulse Ox 98 04/24/23 00:12 O2 Del Method Room Air 04/23/23 23:03 BMI result Body Mass Index 52.5 VITAL SIGNS: Reviewed. GENERAL: Well developed, well nourished, in no acute distress. HEAD: Normocephalic/atraumatic EYES: PERRLA, EOMI LUNGS: Normal breath sounds. No adventitious sounds or accessory muscle use. SpO2<98> CARDIOVASCULAR: Regular rate and rhythm without noted murmurs ABDOMEN: Soft, non-tender, non-distended with bowel sounds. PELVIS: Stable but tenderness noted to the right greater trochanter no pain over the iliac crest but some pain on palpation over anterior pelvic area, neurovascular is intact distally there is no external or internal rotation, there is no noted shortening. MUSCULOSKELETAL: No tenderness, deformities, or effusions noted on gross inspection. EXTREMITIES: No cyanosis, clubbing or edema. SKIN: Inspection of the skin reveals no rashes NEUROLOGIC: Alert and oriented x 4. Strength and sensation to light touch were grossly intact x 4. Medications Administered Discontinued Medications Generic Name Dose Route Start Last Admin Trade Name Oliverq PRN Reason Stop Dose Admin Fentanyl 25 mcg 04/24/23 00:09 12 00:42 Fentanyl Citrate/Pf 100 Mcg/2 Ml Vial IVPUSH 04/24/23 00:10 25 mcg ONCE ONE Administration Protocol Medical Decision Making Medical Decision Making [facility] Narrative: 77-year-old female with history and clinical presentation, DDX: Suspect femur/pelvis fracture. Review of all investigations and hematologic indices demonstrate a non infectious leukocytosis, there is no anemia/thrombocytopenia but there is a noted left shift. Coagulation studies are within normal limits. Chemistry indices do not demonstrate an ZA or electrolytes/liver enzyme derangements. Urinalysis only significant for hematuria but no infection. My prelim read of hip/pelvis x-ray appears to be consistent with superior/inferior rami fracture, nondisplaced but will need to follow-up with CT pelvis to confirm. CT confirms that there are fractures of both the superior and inferior rami, patient requires pain medication. I have discussed the case with both the orthopedic data processing systems consultant and placed a consult and also discussed the case with inpatient hospitalist who accepts admission. Differential Diagnosis Differential Diagnoses: The differential diagnosis associated with the presentation includes Please see the discussion above Admission/Observation Consideration of admission/observation: Escalation of care including admission/observation considered Please see the discussion above Consult Healthcare Provider Management of the patient was discussed with: Hospitalist and Wood Milling Machine Operator Please see the discussion above Lab Data [facility] Lab Attestation statement: I reviewed the patient's lab results. Please see the discussion above 04/24/23 00:27 04/24/23 00:27 Labs: Lab Results 04/24/23 Range/Units 00:27 WBC 11.4 H (4.8-10.8) X10*3/uL RBC 4.73 (4.20-5.50) X10*6/uL Hgb 12.1 (12.0-16.0) g/dl Hct 39.2 (37.0-47.0) % MCV 82.9 (80.0-98.0) fL MCH 25.6 L (27.0-33.0) pg MCHC 30.9 L (31.0-35.0) g/dl RDW 12.9 (11.0-16.0) % Plt Count 164 (160-400) X10*3/uL MPV 9.9 (9.4-12.3) fL Immature Gran % (Auto) 0.6 H (0.0-0.4) % Neut % (Auto) 83.1 H (45-73) % Lymph % (Auto) 11.1 L (20-40) % [place] % (Auto) 4.1 (2-11) % Eos % (Auto) 0.7 (0-4) % Baso % (Auto) 0.4 (0-2) % Lymph # (Auto) 1.3 (1.2-4.9) X10*3/uL [place] # (Auto) 0.5 (0.1-1.2) X10*3/uL Eos # (Auto) 0.1 (0.0-0.4) X10*3/uL Baso # (Auto) 0.0 (0.0-0.2) X10*3/uL Abs Immat Gran (auto) 0.07 H (0.00-0.03) X10*3/uL Absolute Neuts (auto) 9.5 H (2.0-8.3) x10*3/uL Absolute Nucleated RBC 0.000 (0.0-0.012) X10*3/uL Nucleated RBC % (auto) 0.0 (0.0-0.2) /100WBC PT 10.5 L (11.1-13.3) SEC INR 0.9 (0.9-1.1) Sodium 140 (135-145) mmol/L Potassium 4.2 (3.3-5.1) mmol/L Chloride 106 (96-108) mmol/L Carbon Dioxide 23 (22-29) mmol/L Anion Gap 15 (12-20) BUN 23 H (9-16) mg/dL Creatinine 0.75 (0.5-1.4) mg/dL Estim Creat Clear Calc 58.9 Estimated GFR > 60 Random Glucose 104 (60-115) mg/dL Calcium 9.7 (8.4-10.2) mg/dL Total Bilirubin 0.4 (0.0-1.0) mg/dL AST 25 (5-31) U/L ALT 19 (0-31) U/L Alkaline Phosphatase 74 (39-117) U/L Total Protein 7.1 (6.5-8.0) g/dL Albumin 4.2 (3.5-5.0) g/dL Urine Color Yellow Urine Appearance Clear Urine pH 6.0 (5.0-9.0) Ur Specific [place] 1.020 (1.005-1.025) Urine Protein Trace (Neg-Trace) mg/dL Urine Glucose (UA) Negative (Negative) mg/dL Urine Ketones Negative (Negative) mg/dL Urine Blood Small (1+) H (Negative) Urine Nitrite Negative (Negative) Ur Leukocyte Esterase Negative (Negative) Urine RBC 11-20 H (0-2) /HPF Urine WBC 0-5 (0-5) /HPF Ur Squamous Epith Cells 0-2 (0-2) /HPF Urine Bacteria None Seen (None Seen) Hyaline Casts 0-2 (0-2) /LPF Blood Type A Positive Antibody Screen NEGATIVE Radiology Impression Discussion of test interpretation with radiology: I have reviewed the radiologist's reading. Radiologist Impression: Please see the discussion above External Record Review External record reviewed: Outpatient record and Prior outpatient labs Chronic Conditions Patient?s care impacted by: Hypertension Critical Care Time Critical Care Time Critical Care Time: Yes Total Critical Care Time: 30 Attestation: I personally attest to this time spent taking care of the patient. Discharge Plan Discharge Clinical Impression: Fall, Fracture of superior pubic ramus, Fracture of inferior pubic ramus Patient Disposition: Admitted As Inpatient Prescriptions: No Action nitroglycerin 0.4 mg tablet, sublingual sublingual alprazolam 0.25 mg tablet 0.25 mg PO BID PRN atorvastatin 40 mg tablet 40 mg PO DAILY amlodipine 10 mg tablet 10 mg PO DAILY carvedilol 3.125 mg tablet 3.125 mg PO BID acetaminophen-codeine 300-15 mg tablet 1 tab PO BID PRN (Reason: pain) Qty: 7 0RF meclizine 25 mg tablet 25 mg PO TID PRN calcitonin (salmon) 200 unit/actuation spray,non-aerosol 1 spray intranasal (ALT) DAILY aspirin [Adult Low Dose Aspirin] 81 mg tablet,delayed release (DR/EC) 81 mg PO DAILY famotidine 20 mg tablet 20 mg PO DAILY PRN Gemtesa 75 mg tablet 75 mg PO DAILY Qty: 30 2RF Rx Instructions: Gemtesa to replace oxybutynin and vesicare
[2023-04-24 00:38] LABS: Appearance Urine Clear; Color Urine Yellow; Glucose Urine UA Negative (Negative); Leukocyte Esterase Urine Negative (Negative); Nitrite Urine Negative (Negative); UMIC TRIGGER UACC YES; Urine Blood Small (1+) (Negative); Urine Ketones Negative (Negative); Urine Protein Trace mg/dL (Neg-Trace)
[2023-04-24 00:40] LABS: Bacteria Urine None Seen (None Seen); Hyaline Casts Urine 0-2 /LPF (0-2); Squamous Epithelial Cell Urine 0-2 /HPF (0-2); WBC Urine 0-5 /HPF (0-5)
[2023-04-24 00:41] LABS: INTERNATIONAL NORM RATIO 0.9 (0.9-1.1); Prothrombin Time 10.5 SEC (11.1-13.3)
[2023-04-24] MEDS: fentaNYL citrate/PF 100 MCG/2 ML VIAL 25 MCG IVPUSH ×2 (00:42→01:53)
[2023-04-24 00:50] LABS: Alanine Aminotransferase 19 U/L (0-31); Albumin Level 4.2 g/dL (3.5-5.0); Alkaline Phosphatase 74 U/L (39-117); Anion Gap 15 (12-20); Aspartate Amino Transferase 25 U/L (5-31); Bilirubin Total 0.4 mg/dL (0.0-1.0); Blood Urea Nitrogen 23 mg/dL (9-16); Calcium 9.7 mg/dL (8.4-10.2); Carbon Dioxide 23 mmol/L (22-29); Chloride 106 mmol/L (96-108); Creatinine Clr Calc Pharmacy 58.9; Estimated Glomerular Filt Rate > 60; Glucose Random 104 mg/dL (60-115); Potassium 4.2 mmol/L (3.3-5.1); Sodium 140 mmol/L (135-145); Total Protein 7.1 g/dL (6.5-8.0)
--- NOTE | 2023-04-24 01:01 | MHC.EDTECH ---
Patient second type and screen drawn and sent to lab .
--- NOTE | 2023-04-24 01:04 | ECG_ITS ---
Test Reason : fall Blood Pressure : / mmHG Vent. Rate : 088 BPM Atrial Rate : 088 BPM P-R Int : 166 ms QRS Dur : 070 ms QT Int : 344 ms P-R-T Axes : 080 043 057 degrees QTc Int : 416 ms Sinus rhythm with Premature atrial complexes Otherwise normal ECG When compared with ECG of 15-MAR-2019 09:47, Premature atrial complexes are now Present Nonspecific T wave abnormality no longer evident in Anterolateral leads Referred By: Naida Montejo Electronically Signed By:ALAYNA NOVA
--- NOTE | 2023-04-24 03:37 | PC.NURSE ---
Dr. Mitchell aware of bp no new orders at this time. pt reports pain not improved with fetanyl. tylenol/codiene ordered by dr mitchell.
[2023-04-24] MEDS: Enoxaparin Sodium 40 MG/0.4 ML SYRINGE SUBCUT (03:45)
[2023-04-24] MEDS: ALPRAZolam 0.25 MG TABLET PO ×2 (04:17→22:23)
--- NOTE | 2023-04-24 04:19 | PC.NURSE ---
Addendum entered by Maddy Lamb 04/24/23 07:06: +pulses ble. Original Note: pt requested prn for sleep. dr. andre aware. pt medicated per sabina. wants to sleep helped reposition lights off. call anne and belongings within reach.
--- NOTE | 2023-04-24 07:09 | P.HPHOSP_ITS ---
History of Present Illness Date of Service: 04/24/23 Attending physician on admission: Dallas Mitchell Chief Complaint: Fall from a ladder while in [facility] and now with pain in the right hip Patient is a 77 year old white female with past medical history of CAD, Takotsubo cardiomyopathy and hypertension who presents to the emergency room complaining of pain in the right hip that radiates down both legs but is worse on the right and more so with ambulation following a fall from a ladder while in [facility]. She states that she wanted to reach something higher up in the shelves and noticed a ladder close by and so got up on it but miscalculated the height of the last step when coming down and so fell landing on her right side. She denies any head strike or loss of consciousness. Initial work up done in the emergency room included a pelvic CT scan that revealed the presence of a non- displaced fracture through the right superior pubic ramus, a minimally displaced fracture of the right inferior pubic ramus, a minimally displaced right sacral fracture and prominent right presacral musculature possibly due to a muscular injury. She is unable to bear weight at this time. Admission was requested for pain management Review of Systems 2 Review of Systems: Yes all other systems are reviewed and are negative [facility] Medical History Urinary frequency HTN (hypertension) Takotsubo cardiomyopathy CAD (coronary artery disease) Interstitial cystitis Nocturia Frequent urination Anxiety Interstitial cystitis Renal mass Functional capacity: independent ambulation Patient : No Family History Mother Heart disease Stroke Epilepsia Father Heart disease Surgical History Hx of appendectomy History of removal of ovarian cyst History of section Social History Household Members: Spouse Alcohol intake: never Patient Tobacco Use Status: Former Tobacco user Quit Date: 1979 Smoked: 18 +/- Meds Allergies Allergy/AdvReac Type Severity Reaction Status Date / Time morphine [Morphine] Allergy Mild hives Verified 04/24/23 01:59 oxycodone [From PERCODAN] Allergy Mild Rash Verified 04/24/23 01:59 tetracycline [Tetracycline] Allergy Mild rash Verified 04/24/23 01:59 diphtheria,pertussis Allergy Unknown Rash Verified 04/24/23 01:59 (acell),tetanu mirabegron [Myrbetriq] Allergy Unknown facial/ Verified 04/24/23 01:59 eye itching Penicillins [PENICILLINS] Allergy Unknown Rash Verified 04/24/23 01:59 Home Medications Medication Instructions Recorded Confirmed Last Taken Type alprazolam 0.25 mg tablet 0.25 mg PO BID PRN Anxiety 05/26/20 04/24/23 Unknown History amlodipine 10 mg tablet 10 mg PO DAILY 05/26/20 04/24/23 Unknown History atorvastatin 40 mg tablet 40 mg PO DAILY 05/26/20 04/24/23 Unknown History nitroglycerin 0.4 mg sublingual 0.4 mg sublingual 05/26/20 02/28/23 Unknown History tablet aspirin 81 mg tablet,delayed 81 mg PO DAILY 11/11/20 04/24/23 Unknown History release (Adult Low Dose Aspirin) calcitonin (salmon) 200 1 spray intranasal (ALT) DAILY 11/11/20 04/24/23 Unknown History unit/actuation nasal spray carvedilol 3.125 mg tablet 3.125 mg PO BID 11/17/21 04/24/23 Unknown History famotidine 20 mg tablet 20 mg PO DAILY PRN Acid Reflux 11/17/21 04/24/23 Unknown History nitroglycerin 0.4 mg sublingual 0.4 mg sublingual DAILY 04/24/23 04/24/23 Unknown History tablet oxybutynin chloride 5 mg 5 mg PO DAILY 04/24/23 04/24/23 Unknown History tablet,extended release 24 hr solifenacin 10 mg tablet 10 mg PO DAILY 04/24/23 04/24/23 Unknown History Physical Exam 2 Vital Signs and Narrative: Vital Signs: Last Vital Signs Temp 98.6 F 04/24/23 06:20 Pulse 87 04/24/23 06:20 Resp 14 04/24/23 06:20 BP 132/62 04/24/23 06:20 Pulse Ox 98 04/24/23 06:20 O2 Del Method Room Air 04/24/23 06:20 BMI result Body Mass Index 52.5 General: Well nourished. Awake, alert and oriented x 4. No apparent distress Eyes: No pallor or jaundice. PERRLA, EOMI HENT: Moist oral mucus membranes. No oropharyngeal lesions. Neck: Supple. No cervical adenopathy. No JVD Cardiovascular: Regular rate and rhythm. Normal heart sounds. No murmurs, rubs or gallops. No JVD. No peripheral edema. Respiratory: Normal respiratory effort with no accessory muscle use. CTAB. , CTA bilaterally Gastrointestinal: Abdomen is soft, non-tender, non-distended. Normoactive bowel sounds. No hepatosplenomegaly Extremities: No edema. No calf tenderness. Good peripheral pulses. Pain on attenpting to move the RLE at the right hip joint. Skin - Warm/Dry. No rashes. No mottling. Capillary refill is < 2 seconds Neurological - AAOx4. Intact speech & cognition. Normal gait & balance. CN II - XII grossly intact but not individually tested. Hematologic: No bleeding. No ecchymosis. No swollen or tender lymph nodes. Psychiatric: Cooperative. Appropriate mood and affect . Results Labs 04/24/23 00:27 04/24/23 00:27 Labs: Laboratory Results - last 24 hr 04/24/23 00:27 MCV 82.9 MCH 25.6 L MCHC 30.9 L RDW 12.9 Plt Count 164 MPV 9.9 Immature Gran % (Auto) 0.6 H Neut % (Auto) 83.1 H Lymph % (Auto) 11.1 L [place] % (Auto) 4.1 Eos % (Auto) 0.7 Baso % (Auto) 0.4 Lymph # (Auto) 1.3 [place] # (Auto) 0.5 Eos # (Auto) 0.1 Baso # (Auto) 0.0 Abs Immat Gran (auto) 0.07 H Absolute Neuts (auto) 9.5 H Absolute Nucleated RBC 0.000 Nucleated RBC % (auto) 0.0 PT 10.5 L INR 0.9 Anion Gap 15 Estim Creat Clear Calc 58.9 Estimated GFR > 60 Random Glucose 104 Calcium 9.7 Total Bilirubin 0.4 AST 25 ALT 19 Alkaline Phosphatase 74 Total Protein 7.1 Albumin 4.2 Urine Color Yellow Urine Appearance Clear Urine pH 6.0 Ur Specific [place] 1.020 Urine Protein Trace Urine Glucose (UA) Negative Urine Ketones Negative Urine Blood Small (1+) H Urine Nitrite Negative Ur Leukocyte Esterase Negative Urine RBC 11-20 H Urine WBC 0-5 Ur Squamous Epith Cells 0-2 Urine Bacteria None Seen Hyaline Casts 0-2 Blood Type A Positive Antibody Screen NEGATIVE ECG Interpretation: NSR at 88 bpm. No acute ischemic changes Imaging Radiologist's Impressions: Impressions Hip/Pelvis X-Ray 04/23/23 23:30 IMPRESSION: No acute osseous abnormality. Pelvis CT 04/24/23 01:25 IMPRESSION: Lucency through the superior pubic ramus on the right is consistent with an undisplaced fracture. There is also a minimally displaced fracture inferior pubic ramus on the right. Minimally displaced right sacral fracture The right presacral musculature is prominent possibly related to a muscular injury. Diverticula of the descending and sigmoid colon without diverticulitis. Assessment and Plan (1) Fracture of inferior pubic ramus: Qualifiers: Encounter type: initial encounter Fracture type: closed Laterality: r [facility] Qualified Code(s): S32.591A - Other specified fracture of right pubis, initial encounter for closed fracture Status: Acute (2) Fracture of superior pubic ramus: Qualifiers: Encounter type: initial encounter Fracture type: closed [facility]: [facility] Qualified Code(s): S32.511A - Fracture of superior rim of right pubis, initial encounter for closed fracture Status: Acute (3) Sacral fracture, closed: Qualifiers: Encounter type: initial encounter Fracture alignment: minimally displaced Zone of sacrum fracture: zone II of sacrum Qualified Code(s): S 32.121A - Minimally displaced Zone II fracture of sacrum, initial encounter for closed fracture Status: Acute (4) Fall: Qualifiers: Encounter type: initial encounter Qualified Code(s): W19.XXXA - Unspecified fall, initial encounter Status: Acute (5) HTN (hypertension): Status: Acute Plan 77 year old white female with past medical history of CAD, Takotsubo cardiomyopathy and hypertension here with 1. Closed right superior and inferior pubic ramus fracture 2. Closed minimally displaced right sacral fracture - conservative care - prn analgesics - Orthopedic surgery consult - PT/OT consult pending orthopedic input - will likely need STR at time of discharge 3. Uncontrolled hypertension - likely 2/2 pain - continue analgesics - resume anti-hypertensives (Amlodipine and Carvedilol) 4. Hyperlipidemia - resume Atorvastatin 5. Accidental fall from ladder - no further input DVT: SC [place] CODE STATUS: Full code Admission for at least 2 midnights for management of right superior and inferior pubic rami fracture requiring orthopedic and PT input and that may require short term rehab placement . Total time managing care of this patient today: 75 minutes. Quality Stroke Does the patient have a stroke diagnosis?: No VTE Prior VTE?: No VTE Risk Level:: Medical - moderate - high VTE Device Contraindication: N/A - Device Ordered VTE Drug Contraindication: N/A - Med Ordered
[2023-04-24] MEDS: Atorvastatin Calcium 40 MG TABLET PO (08:22)
[2023-04-24] MEDS: Aspirin Enteric Coated 81 MG TABLET.DR PO (08:22)
[2023-04-24] MEDS: carvediloL 3.125 MG TABLET PO ×2 (08:23→20:32)
[2023-04-24] MEDS: Docusate Sodium 100 MG CAPSULE PO ×2 (08:23→20:32)
[2023-04-24] MEDS: oxyBUTYnin chloride ER 5 MG TAB.ER.24 PO (08:23)
[2023-04-24] MEDS: amLODIPine Besylate 10 MG TABLET PO (08:23)
[2023-04-24] MEDS: 0.9 % Sodium Chloride Flush 3 ML SYRINGE IVFLUSH ×3 (08:24→20:32)
--- NOTE | 2023-04-24 09:35 | PHA.MEDREC ---
Pharmacy Consult ? Medication Reconciliation Pharmacy has completed the medication reconciliation. spoke with patient to confirm medications. She is a poor historian but she did have a medication list. She said one of them she was supposed to stop taking but did not know which one or what it was for. I assumed it was solifenacin d/t last peanut picker in June. Amlodipine was not on her med list and when I asked about it she said she does take it because her BP is high however she last picked up in May and [facility] verified that it was canceled by the doctor and has no active prescription for it. She reported that she takes something OTC for memory but cannot remember what it is.
--- NOTE | 2023-04-24 11:30 | PC.NURSE ---
patient and son at bedside. they would like her to go to rehab at [facility] as patient's is currently there. health care proxy is some where in her home but son is unsure. call Jurgen Lopez with any information at [phone]
--- NOTE | 2023-04-24 11:37 | PM.EVENT ---
Event Note Date of Service: 04/24/23 Event Note: 77-year-old female admitted early this morning due to closed right superior and inferior pubic ramus fracture and closed minimally displaced right sacral fracture following accidental mechanical fall from ladder (1 LARGE STEP) landing on right side. No head injury or loss of consciousness.. Orthopedic consult is pending. Patient is currently reporting 7/10 pain. Reports her pain responds well to Tylenol with codeine which is ordered. Will also add IV morphine as needed for severe pain only. PT consult placed. Blood pressure control greatly improved. Continue home antihypertensives. Agree with plan noted in H&P. Time Spent With Patient Time: Total time managing care of this patient today ____ minutes.
[2023-04-24 11:43] LABS: COVID-19 Test Negative (Negative); IDNOW Serial# 08D9AD1C
--- NOTE | 2023-04-24 13:49 | PM.CNOR ---
History of Present Illness HPI Consult date: 04/24/23 Chief complaint: right superior&interior pubic ramus fracture;fall Narrative: Patient is a 77 year old white female with past medical history of CAD, Takotsubo cardiomyopathy and hypertension who presents to the emergency room complaining of pain in the right hip that radiates down both legs but is worse on the right and more so with ambulation following a [facility]. She states that she wanted to reach something higher up in the shelves and noticed a ladder close by and so got up on it but miscalculated the height of the last step when coming down and so fell landing on her right side. CT scan that revealed the presence of a non-displaced fracture through the right superior pubic ramus, a minimally displaced fracture of the right inferior pubic ramus, a minimally displaced right sacral fracture and prominent right presacral musculature possibly due to a muscular injury. Orthopedics was consulted for recommenations PMFSH Past Medical History Medical History Urinary frequency HTN (hypertension) Takotsubo cardiomyopathy CAD (coronary artery disease) Interstitial cystitis Nocturia Frequent urination Anxiety Interstitial cystitis Renal mass Functional capacity: independent ambulation Family History Family History Mother Heart disease Stroke Epilepsia Father Heart disease Surgical History Surgical History Hx of appendectomy History of removal of ovarian cyst History of section Social History Social History Household Members: Spouse Alcohol intake: never Patient Tobacco Use Status: Former Tobacco user Quit Date: 1979 Years Smoked: 18 +/- Smoked in Last 30 Days: No Use of substances other than those prescribed or required for medical reasons: No Advance Directives: No Advance Directives Information Provided: No Nutrition Risks: No Nutritional Risk Patient : No Meds Allergies Allergy/AdvReac Type Severity Reaction Status Date / Time morphine [Morphine] Allergy Mild hives Verified 04/24/23 01:59 oxycodone [From PERCODAN] Allergy Mild Rash Verified 04/24/23 01:59 tetracycline [Tetracycline] Allergy Mild rash Verified 04/24/23 01:59 diphtheria,pertussis Allergy Unknown Rash Verified 04/24/23 01:59 (acell),tetvolodymyru mirabegron [Myrbetriq] Allergy Unknown facial/ Verified 04/24/23 01:59 eye itching Penicillins [PENICILLINS] Allergy Unknown Rash Verified 04/24/23 01:59 Active Medications: Current Medications Acetaminophen (Acetaminophen 325 Mg Tablet) 650 mg PO Q6H PRN PRN Reason: Pain, Mild (Pain Scale 1-3) Acetaminophen/Codeine Phosphate (Acetaminophen With Codeine # 3 Tablet) 1 tab PO Q4H PRN PRN Reason: right hip pain Last Admin: 04/24/23 10:38 Dose: 1 tab Al Hydroxide/Mg Hydroxide (Magnesium Hydrox/Alum Hydrox 30 Ml Oral.Susp) 30 ml PO Q4H PRN PRN Reason: Heartburn/Nausea Alprazolam (Alprazolam 0.25 Mg Tablet) 0.25 mg PO BID PRN PRN Reason: Anxiety Last Admin: 04/24/23 04:17 Dose: 0.25 mg Aspirin (Aspirin Enteric Coated 81 Mg Tablet.Dr) 81 mg PO DAILY [facility] Last Admin: 04/24/23 08:22 Dose: 81 mg Atorvastatin Calcium (Atorvastatin Calcium 40 Mg Tablet) 40 mg PO DAILY [facility] Last Admin: 04/24/23 08:22 Dose: 40 mg Calcitonin [place] (Calcitonin,[place],Synth Nasal 3.7 Ml Bottle) 1 spray NOSTRILALT DAILY [facility] Carvedilol (Carvedilol 3.125 Mg Tablet) 3.125 mg PO BID [facility]; Protocol Last Admin: 04/24/23 08:23 Dose: 3.125 mg Docusate Sodium (Docusate Sodium 100 Mg Capsule) 100 mg PO BID [facility] Last Admin: 04/24/23 08:23 Dose: 100 mg Enoxaparin Sodium (Enoxaparin Sodium 40 Mg/0.4 Ml Syringe) 40 mg SUBCUT Q24H [facility] Last Admin: 04/24/23 03:45 Dose: 40 mg Famotidine (Famotidine 20 Mg Tablet) 20 mg PO DAILY PRN PRN Reason: Acid Reflux Hydromorphone HCl (Hydromorphone Hcl 0.5 Mg/0.5 Ml Syringe) 0.25 mg IVPUSH Q4H PRN; Protocol PRN Reason: Pain, Severe (Pain Scale 7-10) Magnesium Hydroxide (Milk Of Magnesia 30 Ml Oral.Susp) 30 ml PO DAILY PRN PRN Reason: Constipation Melatonin (Melatonin 3 Mg Tablet) 6 mg PO BEDTIME PRN PRN Reason: Insomnia Ondansetron HCl (Ondansetron Hcl 4 Mg/2 Ml Vial) 4 mg IVPUSH Q8H PRN PRN Reason: Nausea and Vomiting Oxybutynin Chloride (Oxybutynin Chloride Er 5 Mg Tab.Er.24) 5 mg PO DAILY [facility] Last Admin: 04/24/23 08:23 Dose: 5 mg Sodium Chloride (0.9 % Sodium Chloride Flush 3 Ml Syringe) 3 ml IVFLUSH QSHIFT [facility] Last Admin: 04/24/23 08:24 Dose: 3 ml Home Medications Medication Instructions Recorded Confirmed Last Taken Type alprazolam 0.25 mg tablet 0.125 - 0.25 mg PO BID PRN Anxiety 05/26/20 04/24/23 Unknown History atorvastatin 40 mg tablet 40 mg PO DAILY 05/26/20 04/24/23 Unknown History aspirin 81 mg tablet,delayed 81 mg PO DAILY 11/11/20 04/24/23 Unknown History release (Adult Low Dose Aspirin) calcitonin (salmon) 200 1 spray intranasal (ALT) DAILY 11/11/20 04/24/23 Unknown History unit/actuation nasal spray carvedilol 3.125 mg tablet 3.125 mg PO BID 11/17/21 04/24/23 Unknown History famotidine 20 mg tablet 20 mg PO BID Acid Reflux 11/17/21 04/24/23 Unknown History docusate sodium 100 mg capsule 300 mg PO DAILY 04/24/23 04/24/23 Unknown History nitroglycerin 0.4 mg sublingual 0.4 mg sublingual Q5M PRN Chest 04/24/23 04/24/23 Unknown History tablet Pain oxybutynin chloride 5 mg 2.5 mg PO DAILY 04/24/23 04/24/23 Unknown History tablet,extended release 24 hr Physical Exam Vital Signs: Vital Signs: Last Vital Signs Temp 98.6 F 04/24/23 06:20 Pulse 87 04/24/23 06:20 Resp 14 04/24/23 06:20 BP 132/62 04/24/23 06:20 Pulse Ox 98 04/24/23 06:20 O2 Del Method Room Air 04/24/23 06:20 BMI result Body Mass Index 52.5 Extrem: Other: patient is resting in bed with hips in a flexed position mild discomfort with rom of the right leg NVI Results Labs 04/24/23 00:27 04/24/23 00:27 Labs: Abnormal lab results 04/24/23 Range/Units 00:27 WBC 11.4 H (4.8-10.8) X10*3/uL MCH 25.6 L (27.0-33.0) pg MCHC 30.9 L (31.0-35.0) g/dl Immature Gran % (Auto) 0.6 H (0.0-0.4) % Neut % (Auto) 83.1 H (45-73) % Lymph % (Auto) 11.1 L (20-40) % Abs Immat Gran (auto) 0.07 H (0.00-0.03) X10*3/uL Absolute Neuts (auto) 9.5 H (2.0-8.3) x10*3/uL PT 10.5 L (11.1-13.3) SEC BUN 23 H (9-16) mg/dL Urine Blood Small (1+) H (Negative) Urine RBC 11-20 H (0-2) /HPF H & H 04/24/23 Range/Units 00:27 Hgb 12.1 (12.0-16.0) g/dl Hct 39.2 (37.0-47.0) % Coagulation 04/24/23 Range/Units 00:27 INR 0.9 (0.9-1.1) All other labs normal. Assessment and Plan (1) Fracture of inferior pubic ramus: Qualifiers: Encounter type: initial encounter Fracture type: closed Laterality: right Qualified Code(s): S32.591A - Other specified fracture of right pubis, initial encounter for closed fracture Status: Acute (2) Fracture of superior pubic ramus: Qualifiers: Encounter type: initial encounter Fracture type: closed Laterality: right Qualified Code(s): S32.511A - Fracture of superior rim of right pubis, initial encounter for closed fracture Status: Acute Plan No surgical intervention warranted TTWB with walker pain mgmnt f/u with orthopedics outpatient in 6 weeks Procedures Date of Service Date of Service: 04/24/23
[2023-04-25 03:20] VITALS: BP 121/62; PULSE 80; RESP 18; TEMP 36.4; O2SAT 96
[2023-04-25] MEDS: Enoxaparin Sodium 40 MG/0.4 ML SYRINGE SUBCUT (03:41)
[2023-04-25 07:38] VITALS: BP 113/58; PULSE 78; RESP 16; TEMP 36.3; O2SAT 96
[2023-04-25] MEDS: Atorvastatin Calcium 40 MG TABLET PO (08:35)
[2023-04-25] MEDS: oxyBUTYnin chloride ER 5 MG TAB.ER.24 PO (08:35)
[2023-04-25] MEDS: Docusate Sodium 100 MG CAPSULE PO (08:35)
[2023-04-25] MEDS: Aspirin Enteric Coated 81 MG TABLET.DR PO (08:36)
[2023-04-25] MEDS: carvediloL 3.125 MG TABLET PO (08:36)
[2023-04-25] MEDS: 0.9 % Sodium Chloride Flush 3 ML SYRINGE IVFLUSH ×2 (08:40→15:00)
--- NOTE | 2023-04-25 09:38 | MHC.CM.PN ---
Addendum entered by Salud Bean RN 04/25/23 13:28: Per [facility] auth obtained. Per hospitalist patient is medically cleared for DC. BLS transport booked for 6pm. Facility, patient, RN and PA aware. Addendum entered by Salud Bean RN 04/25/23 11:26: [facility] has offered a bed and is going for auth. Addendum entered by Salud Bean RN 04/25/23 10:56: PT recommending STR. [facility] Will follow. Original Note: IMM DELIVERED. PATIENT FROM HOME ALONE WITH MEALS ON WHEELS 3X/WEEK. AMBULATES INDEPENDENTLY AT BASELINE. NO EQUIPMENT IN THE HOME. PCP: [facility]ISHA HCP: COMPLETED WITH PATIENT, NAMED SON GABY AGENT DCP: PENDING PT EVAL, PT IS HOPING FOR STR AND PREFERS [facility]. CM WILL CONTINUE TO FOLLOW.
--- NOTE | 2023-04-25 12:41 | HO.PM.IMPN ---
Subjective Subjective Date of Service: 04/25/23 Interval History: Seen in follow up for R superior and inferior pubic ramus fracture, R sacral fracture Interval history: Comfortable at rest. 4-5/10 pain R hip/pelvis with movement. No other complaints Review of Systems Review of Systems: Yes all other systems are reviewed and are negative Physical Exam Vital Signs: Vital Signs: Last Vital Signs Temp 97.3 F 04/25/23 07:38 Pulse 78 04/25/23 07:38 Resp 16 04/25/23 07:38 BP 113/58 L 04/25/23 07:38 Pulse Ox 96 04/25/23 07:38 O2 Del Method Room Air 04/25/23 07:38 BMI result Body Mass Index 20.5 Constitutional - Awake and Alert, No apparent distress Eyes - PERRLA, EOMI Cardiovascular - S1S2, RRR, No edema Respiratory - Normal lung expansion, Normal respiratory effort, No respiratory distress, CTA bilaterally Gastrointestinal - NT / ND; +BS; No rebound or guarding Extremities - no calf tenderness bilaterally, no swelling Skin - Warm/Dry Neurological - Alert & oriented x3 Psychological - Appropriate affect Objective Data Active Medications Acetaminophen (Acetaminophen 325 Mg Tablet) 650 mg PO Q6H PRN PRN Reason: Pain, Mild (Pain Scale 1-3) Acetaminophen/Codeine Phosphate (Acetaminophen With Codeine # 3 Tablet) 1 tab PO Q4H PRN PRN Reason: right hip pain Last Admin: 04/25/23 08:36 Dose: 1 tab Documented By: KIRSTIN Al Hydroxide/Mg Hydroxide (Magnesium Hydrox/Alum Hydrox 30 Ml Oral.Susp) 30 ml PO Q4H PRN PRN Reason: Heartburn/Nausea Alprazolam (Alprazolam 0.25 Mg Tablet) 0.25 mg PO BID PRN PRN Reason: Anxiety Last Admin: 04/24/23 22:23 Dose: 0.25 mg Documented By: CASTILBrad Aspirin (Aspirin Enteric Coated 81 Mg Tablet.) 81 mg PO DAILY [facility] Last Admin: 04/25/23 08:36 Dose: 81 mg Documented By: KIRSTIN Atorvastatin Calcium (Atorvastatin Calcium 40 Mg Tablet) 40 mg PO DAILY [facility] Last Admin: 04/25/23 08:35 Dose: 40 mg Documented By: KIRSTIN Calcitonin [place] (Calcitonin,[place],Synth Nasal 3.7 Ml Bottle) 1 spray NOSTRILALT DAILY [facility] Last Admin: 04/25/23 09:45 Dose: Not Given Documented By: KIRSTIN Non-Admin Reason: Med Not Available Carvedilol (Carvedilol 3.125 Mg Tablet) 3.125 mg PO BID [facility]; Protocol Last Admin: 04/25/23 08:36 Dose: 3.125 mg Documented By: KIRSTIN Docusate Sodium (Docusate Sodium 100 Mg Capsule) 100 mg PO BID [facility] Last Admin: 04/25/23 08:35 Dose: 100 mg Documented By: KIRSTIN Enoxaparin Sodium (Enoxaparin Sodium 40 Mg/0.4 Ml Syringe) 40 mg SUBCUT Q24H [facility] Last Admin: 04/25/23 03:41 Dose: 40 mg Documented By: KJ Famotidine (Famotidine 20 Mg Tablet) 20 mg PO DAILY PRN PRN Reason: Acid Reflux Hydromorphone HCl (Hydromorphone Hcl 0.5 Mg/0.5 Ml Syringe) 0.25 mg IVPUSH Q4H PRN; Protocol PRN Reason: Pain, Severe (Pain Scale 7-10) Magnesium Hydroxide (Milk Of Magnesia 30 Ml Oral.Susp) 30 ml PO DAILY PRN PRN Reason: Constipation Melatonin (Melatonin 3 Mg Tablet) 6 mg PO BEDTIME PRN PRN Reason: Insomnia Ondansetron HCl (Ondansetron Hcl 4 Mg/2 Ml Vial) 4 mg IVPUSH Q8H PRN PRN Reason: Nausea and Vomiting Oxybutynin Chloride (Oxybutynin Chloride Er 5 Mg Tab.Er.24) 5 mg PO DAILY [facility] Last Admin: 04/25/23 08:35 Dose: 5 mg Documented By: KIRSTIN Sodium Chloride (0.9 % Sodium Chloride Flush 3 Ml Syringe) 3 ml IVFLUSH QSHIFT [facility] Last Admin: 04/25/23 08:40 Dose: 3 ml Documented By: KIRSTIN Labs 04/24/23 00:27 04/24/23 00:27 Assessment and Plan (1) Sacral fracture, closed: Status: Acute (2) Fracture of inferior pubic ramus: Status: Acute (3) Fracture of superior pubic ramus: Status: Acute (4) Fall: Status: Acute Plan 77 year old white female with past medical history of CAD, Takotsubo cardiomyopathy and hypertension here right superior and inferior pubic ramus fracture and minimally displaced R sacral fracture. Pain improved, but still moderate with movement. 1. Closed right superior and inferior pubic ramus fracture 2. Closed minimally displaced right sacral fracture - conservative care - prn analgesics - No surgical intervention per ortho surgery - Seen by PT recommending STR 3. Hypertension- controlled - continue Amlodipine and Carvedilol 4. Hyperlipidemia - continue Atorvastatin 5. Accidental fall from ladder - no further input DVT: SC Lovenox CODE STATUS: Full code Pt requires ongoing inpatient stay due to above awaiting placement to STR Quality Stroke Does the patient have a stroke diagnosis?: No VTE Prior VTE?: No VTE Risk Level:: Medical - moderate - high VTE Device Contraindication: N/A - Device Ordered VTE Drug Contraindication: N/A - Med Ordered
--- NOTE | 2023-04-25 14:15 | PM.DS ---
DS: Providers Provider Date of Service: 04/25/23 Date of admission: 04/24/23 03:12 Date of discharge: 04/25/23 Primary care physician: Unknown Physician Attending physician on admission: Dallas Mitchell Consults: 04/24/23 01:28 Consult to Orthopedics Stat Consulting Provider: Adarsh Clements Reason for consultation: superior/inferior rami fractures, communicated to [facility] Has provider been notified: Yes Attending physician on discharge: Tutu Frank Discharging clinician: Reba So DS: Diagnosis Discharge Diagnosis (1) Sacral fracture, closed: Status: Acute (2) Fracture of inferior pubic ramus: Status: Acute (3) Fracture of superior pubic ramus: Status: Acute (4) Fall: Status: Acute DS: Summary Hospital Course Hospital Course: HPI on admission by Dr. Mitchell 04/24: Patient is a 77 year old white female with past medical history of CAD, Takotsubo cardiomyopathy and hypertension who presents to the emergency room complaining of pain in the right hip that radiates down both legs but is worse on the right and more so with ambulation following a fall from a ladder while in [facility]. She states that she wanted to reach something higher up in the shelves and noticed a ladder close by and so got up on it but miscalculated the height of the last step when coming down and so fell landing on her right side. She denies any head strike or loss of consciousness. Initial work up done in the emergency room included a pelvic CT scan that revealed the presence of a non-displaced fracture through the right superior pubic ramus, a minimally displaced fracture of the right inferior pubic ramus, a minimally displaced right sacral fracture and prominent right presacral musculature possibly due to a muscular injury. She is unable to bear weight at this time. Admission was requested for pain management Hospital course: Hospital course uneventful. Bp intially uncontrolled secondary to pain but remained controlled through admission. Labs shows a mild leukocytosis, likely reactive. All other labs unremarkable. Pt admitted to /S with superior and inferior pubic rami fracture as well as mildy displace sacral fracture for pain control. Seen an evaluated by orthopedic surgery who did not recommend any surgical intervention. Pain was reasonably controlled with tylenol with codeine, did not require any IV narcotic medication. She was evaluated by PT recommending placement to STR. Alexandre catheter was discontinued and patient was able to void without difficulty. She will be transferred to [facility] for further [facility]. Anticipated LOS less than 30 days. She will be discharged with tylenol with codeine to use as needed for pain and should continue all other home medications. Masspat reviewed and is appropriate. Follow up with orthopedics in 4-6 weeks and PCP soon. Status at Discharge Functional status at discharge: uses cane/walker Time Attestation Discharge coordination time: Greater than 30 minutes Quality: Safe Use of Opioids Does Pt have an Active Cancer Diagnosis on the Problem List?: No Quality: Stroke Does the patient have a stroke diagnosis?: No Physical Exam Vital Signs: Vital Signs: Last Vital Signs Temp 97.3 F 04/25/23 07:38 Pulse 78 04/25/23 07:38 Resp 16 04/25/23 07:38 BP 113/58 L 04/25/23 07:38 Pulse Ox 96 04/25/23 07:38 O2 Del Method Room Air 04/25/23 07:38 BMI result Body Mass Index 20.5 Discharge Plan Discharge Anticipated Discharge Date/Time: 04/25/23 14:21 Patient Disposition: Xfer SNF Discharge Diagnosis: pubic ramus fracture, sacral fracture Referrals: [facility] [Outside] - 1 Day (short term rehab) Adarsh Clements MD [Physician] - 1 Week Physician,Unknown J [Physician] - 1 Week Discharge Medications: New acetaminophen-codeine 300-30 mg Tablet 1 tab PO Q4H PRN (Reason: right hip pain) Qty: 20 0RF Continued oxybutynin chloride 5 mg tablet extended release 24hr 2.5 mg PO DAILY nitroglycerin 0.4 mg tablet, sublingual 0.4 mg sublingual Q5M PRN (Reason: Chest Pain) docusate sodium 100 mg Capsule 300 mg PO DAILY alprazolam 0.25 mg tablet 0.125 - 0.25 mg PO BID PRN (Reason: Anxiety) atorvastatin 40 mg tablet 40 mg PO DAILY carvedilol 3.125 mg tablet 3.125 mg PO BID calcitonin (salmon) 200 unit/actuation spray,non-aerosol 1 spray intranasal (ALT) DAILY aspirin [Adult Low Dose Aspirin] 81 mg tablet,delayed release (DR/EC) 81 mg PO DAILY famotidine 20 mg tablet 20 mg PO BID Discontinued acetaminophen-codeine 300-15 mg tablet 1 tab PO BID PRN (Reason: pain) Qty: 7 0RF Discharge Orders: Discharge Order (Routine); Ordered 04/25/23 Ordered By: Reba So Diet: Advance to usual diet Activity on Discharge: As tolerated Stand Alone Forms: Patient Portal Discharge page Care Plan Goals: Resolve hip pain, and continue with rehabilitation Health Concerns: Right superior pubic rami fracture Right inferior pubic rami fracture Right mildly displaced sacral fracture Plan of Treatment: Transfer to [facility] to continue with rehabilitation for fractures as above Toe touch weight bearing with walker Use tylenol, or tylenol with codeine as needed for pain Follow up with orthopedics in 4-6 weeks Follow up with PCP Continue all other home medications Assessment: See above. See discharge summary Discharge Date/Time: 04/25/23 18:30
[2023-04-25 15:43] VITALS: BP 113/55; PULSE 98; RESP 18; TEMP 36.2; O2SAT 98
== END 2023-04-25 18:30 | disposition skilled nursing facility (03) | DRG 552 ==
LOC: HO.ED 04-24 01:40 → HO.EDOVER 04-24 03:22 → HO.S3 04-24 13:59
PROVIDERS: Admitting Provider Internal Medicine; Emergency Provider Student in an Organized Health Care Education/Training Program; PCP Family Medicine; Visit Provider Physician Assistant
DX: S32.10XA Unspecified fracture of sacrum, initial encounter for closed fracture (principal); S32.511A Fracture of superior rim of right pubis, initial encounter for closed fracture; S32.591A Other specified fracture of right pubis, initial encounter for closed fracture; I10 Essential (primary) hypertension; E78.5 Hyperlipidemia, unspecified; I25.10 Atherosclerotic heart disease of native coronary artery without angina pectoris; W11.XXXA Fall on and from ladder, initial encounter; Y92.512 Supermarket, store or market as the place of occurrence of the external cause; Z87.891 Personal history of nicotine dependence; Z79.82 Long term (current) use of aspirin; Z79.899 Other long term (current) drug therapy
CPT/HCPCS: 36415; 72192; 73502; 80053; 81001; 85025; 85610; 86850; 86900; 86901; 87635; 93005; 97162; 99218; 99285; C1758; J1650; J3010

== ENCOUNTER → 2023-04-24 01:04 | Outpatient (BNV) | payer MEDICARE, SELFPAY | PROVIDERS: Admitting Provider Internal Medicine; Emergency Provider Student in an Organized Health Care Education/Training Program; Visit Provider Internal Medicine | DX: I49.1 Atrial premature depolarization (principal) | CPT/HCPCS: 93010 ==

== ENCOUNTER → 2023-04-24 03:12 | Outpatient (BNV) | payer MEDICARE, SELFPAY | PROVIDERS: Admitting Provider Internal Medicine; Emergency Provider Student in an Organized Health Care Education/Training Program; Visit Provider Physician Assistant | DX: S32.591A Other specified fracture of right pubis, initial encounter for closed fracture (principal); S32.511A Fracture of superior rim of right pubis, initial encounter for closed fracture | CPT/HCPCS: 99231 ==

== ENCOUNTER → 2023-04-24 03:12 | Outpatient (BNV) | payer MEDICARE, SELFPAY | PROVIDERS: Admitting Provider Internal Medicine; Emergency Provider Student in an Organized Health Care Education/Training Program; Visit Provider Internal Medicine | DX: S32.511A Fracture of superior rim of right pubis, initial encounter for closed fracture (principal); S32.591A Other specified fracture of right pubis, initial encounter for closed fracture; S32.121A Minimally displaced Zone II fracture of sacrum, initial encounter for closed fracture; I10 Essential (primary) hypertension; W19.XXXA Unspecified fall, initial encounter | CPT/HCPCS: 99223; 99232; 99239; 99499 ==

== ENCOUNTER 2023-06-01 15:28 | Outpatient (AMB) | payer MEDICARE, SELFPAY ==
--- NOTE | 2023-06-01 16:03 | AM.OFFWIN_ITS ---
Intake Vital Signs 06/01/23 16:04 Height 4 ft 7 in BMI Reason not done Patient refused/unable BP 126/74 Blood Pressure Location Rt brachial Position Sitting Pulse 76 Pulse Source Pulse Oximeter Temp 98.0 F Temp Source Oral Pulse Oximetry (%) 97 Oxygen Delivery Method Room Air Intake Visit Reasons: EP, Vertigo,nausea (lobby) Intake Note: pt is here for c.o nausea since Tuesday and states shes been having vertigo also and pt states she is unable to eat and drink water duet to the vertigo Patient Tobacco Use Status: Former Tobacco user Quit Date: 1981 Allergies morphine [Morphine] Allergy (Mild, Verified 06/01/23 16:05) hives oxycodone [From PERCODAN] Allergy (Mild, Verified 06/01/23 16:05) Rash tetracycline [Tetracycline] Allergy (Mild, Verified 06/01/23 16:05) rash diphtheria,pertussis (acell),tetanu Allergy (Unknown, Verified 06/01/23 16:05) Rash mirabegron [Myrbetriq] Allergy (Unknown, Verified 06/01/23 16:05) facial/ eye itching Penicillins [PENICILLINS] Allergy (Unknown, Verified 06/01/23 16:05) Rash Do you need a note to return to daycare/school/sports/work: No HPI HPI Comments History of Present Illness Details This is a 77-year-old female with a past medical history of hyperlipidemia, hypertension and vertigo presenting for evaluation of vertigo that she had for the past 1 day. Patient states that this has occurred before however she woke up this morning and had room spinning dizziness for approximately 2 minutes. Patient previously took meclizine however was unable to locate it this morning - this afternoon she found her prescription for meclizine 25 mg that she takes 1/2 tablet TID PRN for her vertigo. Patient reports nausea without vomiting today. She denies any injury or trauma preceding the onset of her symptoms. Patient is unaware of any hearing loss but states that she is not good at staying well hydrated throughout the day. Patient was recently in rehabilitation for management of pelvic fractures and only recently returned to her home. [facility] Medical History Urinary frequency HTN (hypertension) Takotsubo cardiomyopathy CAD (coronary artery disease) Interstitial cystitis Nocturia Frequent urination Anxiety Interstitial cystitis Renal mass Surgical History Hx of appendectomy History of removal of ovarian cyst History of section Family History Mother Heart disease Stroke Epilepsia Father Heart disease Social History Household Members: None Housing: Other Housing Other:: [facility], [employer], [address] Do you presently have visiting nurse or other home services: No Alcohol intake: never Patient Tobacco Use Status: Former Tobacco user Quit Date: 1979 Smoked: 18 +/- service: No Review of Systems Const Details: Vertigo today room spinning lasted 1-2 minutes All systems reviewed & are unremarkable except as noted in HPI and below Reports as per HPI Eyes Reports no additional complaints, Denies blurry vision and Denies change in vision ENT Reports no additional complaints and Reports vertigo Card Reports no additional complaints and Denies syncope Resp Reports no additional complaints Musc Reports no additional complaints Neuro Reports no additional complaints, Reports vertigo and Denies syncope Psych Reports no additional complaints Physical Exam Vital Signs: Last Vital Signs Temp 98.0 F 06/01/23 16:04 Pulse 76 06/01/23 16:04 BP 126/74 06/01/23 16:04 Pulse Ox 97 06/01/23 16:04 Oxygen Delivery Method Room Air 06/01/23 16:04 Const General: cooperative, healthy appearing, comfortable, well developed, alert and awake; No no acute distress Nutritional Appearance: thin Orientation/consciousness: patient oriented x3 Limitations: wheelchair HEENT Head: Yes normal to inspection Ears: hearing grossly normal bilaterally, external ears normal and TM's normal bilaterally (No cerumen impaction bilaterally) General nose exam: Normal external nose present Mouth: Normal oral and palatal mucosa present and moist mucous membranes Throat: Yes posterior oropharynx normal Eyes Eyelids: Yes eyelids normal Conjunctivae: conjunctivae normal Sclerae: sclerae normal Corneas: corneas normal Pupils: Equal, round and reactive pupils present EOM: EOMs intact bilaterally and No Nystagmus present Cardio Rate: regular rate Rhythm: regular rhythm Neuro General: patient oriented x3 Cranial nerves: Yes CN's II-XII intact bilaterally, Yes Equal, round and reactive pupils present, Yes Nystagmus not present and No Nystagmus present Cognition (Neuro): normal cognition Psych Appearance: grossly normal Mental Status: mental status grossly normal Insight: Good insight present (Psych) Judgement: Good judgement present (Psych) Assessment & Plan Assessment & Plan (1) Vertigo: Comment: There are no neurological deficits on examination and patient is asymptomatic at this time. Patient has meclizine to take if her symptoms recur and will be discharged home with Zofran. Code(s): R42 - Dizziness and giddiness Plan: Meclizine p.r.n. and Zofran ODT to 6 hours p.r.n. nausea. Patient is also encouraged have her hearing tested, stay very well hydrated with water upon returning home and follow up with her primary care provider within 7-10 days if her symptoms recur. Medications: New ondansetron 4 mg PO Q6H PRN 15 tabs 0RF nausea and vomiting Coding Level of Care Code Est Pt Level 3 (10219) Diagnoses Vertigo R42 Time Spent (min) 20
[2023-06-01 16:04] VITALS: BP 126/74; PULSE 76; TEMP 36.7; O2SAT 97
== END 2023-06-01 17:05 | disposition home or self-care (01) ==
PROVIDERS: PCP Family Medicine; Visit Provider Physician Assistant
DX: R42 Dizziness and giddiness (principal)
CPT/HCPCS: 99213

== ENCOUNTER 2023-06-06 11:33 | Outpatient (REF) | payer MEDICARE, SELFPAY ==
--- NOTE | ~2023-06-06 | XR_ITS ---
EXAMINATION: XR PELVIS CLINICAL INFORMATION: Hip pain COMPARISON: 04/23/2023 pelvis, 04/24/[address] TECHNIQUE: AP view of the pelvis. FINDINGS: Diffuse demineralization. In comparison with previous radiograph, interval appearance of mildly displaced right superior and inferior pubic rami fractures. Pedicles and SI joints within normal limits. Bilateral moderate hip joint narrowings, left greater than right. Vascular calcifications. XR/XR pelvis 1-2V IMPRESSION: Right inferior and superior pubic rami fractures, noted on 04/24/[address]
== END 2023-06-06 11:34 | disposition home or self-care (01) ==
LOC: HO.HOSX 11:33
PROVIDERS: Visit Provider Physician Assistant
DX: M25.551 Pain in right hip (principal); S32.511D Fracture of superior rim of right pubis, subsequent encounter for fracture with routine healing; Z79.899 Other long term (current) drug therapy
CPT/HCPCS: 72170; 99202

== ENCOUNTER 2023-06-06 12:17 | Outpatient (AMB) | payer MEDICARE, SELFPAY ==
--- NOTE | 2023-06-06 12:25 | MHC.OFFVIS ---
Intake Intake Visit Reasons: ov Fracture of inferior pubic ramus Intake Note: Shana tamayo 77 year old female presents today for an ER follow up of fracture of inferior pubic ramus, DOI 04/25/23. Patient reports she is having some discomfort that moves to her glutes and runs down her right leg. She was seen at [facility] ED the same day where xrays were taken. Currently her pain is a 4/10 on a pain scale. Patient reports that she is taking oxybutynin and it is providing her relief. Allergies morphine [Morphine] Allergy (Mild, Verified 06/06/23 12:35) hives oxycodone [From PERCODAN] Allergy (Mild, Verified 06/06/23 12:35) Rash tetracycline [Tetracycline] Allergy (Mild, Verified 06/06/23 12:35) rash diphtheria,pertussis (acell),tetanu Allergy (Unknown, Verified 06/06/23 12:35) Rash mirabegron [Myrbetriq] Allergy (Unknown, Verified 06/06/23 12:35) facial/ eye itching Penicillins [PENICILLINS] Allergy (Unknown, Verified 06/06/23 12:35) Rash Medication List - Last Reconciled 06/06/23 by Martina Conley PA-C acetaminophen-codeine 300-30 mg 1 tab PO Q4H PRN alprazolam 0.125 - 0.25 mg PO BID PRN aspirin (Adult Low Dose Aspirin) 81 mg PO DAILY atorvastatin 40 mg PO DAILY calcitonin (salmon) 200 unit/actuation 1 spray intranasal (ALT) DAILY carvedilol 3.125 mg PO BID famotidine 20 mg PO BID nitroglycerin 0.4 mg sublingual Q5M PRN ondansetron 4 mg PO Q6H PRN oxybutynin chloride ER 2.5 mg PO DAILY HPI ov Fracture of inferior pubic ramus HPI Details 77-year-old female who presents to the office today for an ER follow-up of pubic rami fracture, 04/25/23. She was seen at ED the same day where x-rays were performed. She currently states she has discomfort in her glute which radiates down to her right leg. She rates the pain as 4 on the scale of 0-10. She takes oxybutynin for her pain with benefits. COUNT INCLUDES THE [facility] Medical History Urinary frequency HTN (hypertension) Takotsubo cardiomyopathy CAD (coronary artery disease) Interstitial cystitis Nocturia Frequent urination Anxiety Interstitial cystitis Renal mass Surgical History Hx of appendectomy History of removal of ovarian cyst History of section Family History Mother Heart disease Stroke Epilepsia Father Heart disease Social History Household Members: None Housing: Other Housing Other:: [facility], [facility], [address] Do you presently have visiting nurse or other home services: No Alcohol intake: never Patient Tobacco Use Status: Former Tobacco user Quit Date: 1979 Smoked: 18 +/- service: No Review of Systems Const All systems reviewed & are unremarkable except as noted in HPI and below Physical Exam Extrem Other: Right hip: Normal to inspection. She has mild discomfort with hip flexion. No pain with ROM of hip. NVI. Office Procedures Fracture Care Fracture Billing Code: Fracture Billing Code Results Reviewed Results Reviewed: Xrays were obtained in the office today and personally reviewed by me of the pelvis show a stable, healing inf/sup pubic rami fx Assessment & Plan Assessment & Plan (1) Fracture of inferior pubic ramus: Code(s): S32.599A - Other specified fracture of unspecified pubis, initial encounter for closed fracture Qualifiers: Encounter type: initial encounter Fracture type: closed Laterality: right Qualified Code(s): S32.591A - Other specified fracture of right pubis, initial encounter for closed fracture (2) Fracture of superior pubic ramus: Code(s): S32.519A - Fracture of superior rim of unspecified pubis, initial encounter for closed fracture Qualifiers: Encounter type: initial encounter Fracture type: closed Laterality: right Qualified Code(s): S32.511A - Fracture of superior rim of right pubis, initial encounter for closed fracture Plan She will begin a course of physical therapy to work on gait training and strengthening. She will weight bear as tolerated with walker and I would like to see her back in 6 weeks with x-rays, sooner if needed. Orders: Orders XR pelvis 1-2V Today M25.559 - Pain in unspecified hip PT Evaluation and Treatment Today S32.519A - Fracture of superior rim of unspecified pubis, initial encounter for closed fracture, S32.599A - Other specified fracture of unspecified pubis, initial encounter for closed fracture Patient Instructions: Scribed for Martina Conley PA-C, by Ham Sin medical pathology teacher, on 06/06/2023 at 12:30 PM EST. I, Martina Conley PA-C, have personally reviewed and agree with the information entered by the scribe. Coding Level of Care Code Global (83781) Diagnoses Closed fracture of right inferior pubic ramus, initial encounter S32.591A Encounter type: initial encounter Fracture type: closed Laterality: right Closed fracture of superior ramus of right pubis, initial encounter S32.511A Encounter type: initial encounter Fracture type: closed Laterality: right CPT Codes Fracture Care - Fracture Billing Code: Fracture Billing Code ([id number])
== END 2023-06-06 13:06 | disposition home or self-care (01) ==
PROVIDERS: PCP Family Medicine; Visit Provider Physician Assistant
DX: S32.591A Other specified fracture of right pubis, initial encounter for closed fracture (principal); S32.511A Fracture of superior rim of right pubis, initial encounter for closed fracture
CPT/HCPCS: 99203

== ENCOUNTER 2023-07-18 12:04 | Outpatient (AMB) | payer MEDICARE, SELFPAY ==
--- NOTE | 2023-07-18 12:29 | A.OFFVIS_ITS ---
Intake Vital Signs 07/18/23 12:32 Height 4 ft 7 in Weight 88 lb BMI 20.5 Intake Visit Reasons: OV-right pubic rami fx w xrays Intake Note: Shana a 77 year old female presents today for a follow up of right pubic rami fx, DOI 04/25/23. Patient reports that she completed PT a little over a week ago, she feels she could use more sessions. She continues to have pain with walking. Allergies morphine [Morphine] Allergy (Mild, Verified 07/18/23 12:33) hives oxycodone [From PERCODAN] Allergy (Mild, Verified 07/18/23 12:33) Rash tetracycline [Tetracycline] Allergy (Mild, Verified 07/18/23 12:33) rash diphtheria,pertussis (acell),tetanu Allergy (Unknown, Verified 07/18/23 12:33) Rash mirabegron [Myrbetriq] Allergy (Unknown, Verified 07/18/23 12:33) facial/ eye itching Penicillins [PENICILLINS] Allergy (Unknown, Verified 07/18/23 12:33) Rash HPI OV-right pubic rami fx w xrays HPI Details 77-year-old female who returns to the [facility] today for a follow-up of right pubic ramus fracture, 04/25/23. She continues to have pain in her hip which comes with ambulation. She has completed physical therapy about a week ago with benefits. She would like to have more physical therapy sessions scheduled. [facility] Medical History Urinary frequency HTN (hypertension) Takotsubo cardiomyopathy CAD (coronary artery disease) Interstitial cystitis Nocturia Frequent urination Anxiety Interstitial cystitis Renal mass Surgical History Hx of appendectomy History of removal of ovarian cyst History of section Family History Mother Heart disease Stroke Epilepsia Father Heart disease Social History Household Members: None Housing: Other Housing Other:: [facility], [facility], [address] Do you presently have visiting nurse or other home services: No Alcohol intake: never Patient Tobacco Use Status: Former Tobacco user Quit Date: 1979 Years Smoked: 18 +/- service: No Review of Systems Const All systems reviewed & are unremarkable except as noted in HPI and below Physical Exam Vital Signs: BMI result Body Mass Index 20.5 Extrem Other: Right hip: Normal to inspection. She has mild discomfort with hip flexion. No pain with ROM of hip. NVI. Results Reviewed Results Reviewed: Xrays were obtained in the office today and personally reviewed by me of the pelvis show a stable, healing inf/sup pubic rami fx Assessment & Plan Assessment & Plan (1) Fracture of inferior pubic ramus: Code(s): S32.599A - Other specified fracture of unspecified pubis, initial encounter for closed fracture Qualifiers: Encounter type: initial encounter Fracture type: closed Laterality: right Qualified Code(s): S32.591A - Other specified fracture of right pubis, initial encounter for closed fracture (2) Fracture of superior pubic ramus: Code(s): S32.519A - Fracture of superior rim of unspecified pubis, initial encounter for closed fracture Qualifiers: Encounter type: initial encounter Fracture type: closed Laterality: right Qualified Code(s): S32.511A - Fracture of superior rim of right pubis, initial encounter for closed fracture Plan She was transitioned to outpatient physical therapy in the office today. She will increase activity as tolerated and if symptoms persist or worsens, patient will contact the office, otherwise follow-up as needed. Orders: Orders XR pelvis 1-2V Today M25.559 - Pain in unspecified hip PT Evaluation and Treatment Today S32.519A - Fracture of superior rim of unspecified pubis, initial encounter for closed fracture, S32.599A - Other specified fracture of unspecified pubis, initial encounter for closed fracture Patient Instructions: Scribed for Martina Conley PA-C, by Ham Sin territory sales manager medical, on 07/18/2023 at 12:45 PM EST. Gordo, Martina Conley PA-C, have personally reviewed and agree with the information entered by the scribe. Coding Level of Care Code Global (75221) Diagnoses Closed fracture of right inferior pubic ramus, initial encounter S32.591A Encounter type: initial encounter Fracture type: closed Laterality: right Closed fracture of superior ramus of right pubis, initial encounter S32.511A Encounter type: initial encounter Fracture type: closed Laterality: right
[2023-07-18 12:32] VITALS: BMI 20.5
== END 2023-07-18 13:11 | disposition home or self-care (01) ==
PROVIDERS: PCP Family Medicine; Visit Provider Physician Assistant
DX: S32.591A Other specified fracture of right pubis, initial encounter for closed fracture (principal); S32.511A Fracture of superior rim of right pubis, initial encounter for closed fracture
CPT/HCPCS: 99213

== ENCOUNTER 2023-07-18 15:56 | Outpatient (REF) | payer MEDICARE, SELFPAY ==
--- NOTE | ~2023-07-18 | XR_ITS ---
EXAMINATION: XR PELVIS CLINICAL INFORMATION: Pain COMPARISON: 06/06/2023 TECHNIQUE: AP view of the pelvis. FINDINGS: There is interval healing of mildly displaced fractures of superior and inferior pubic ramus on the right with callus formations. Both hips are unremarkable. XR/XR pelvis 1-2V IMPRESSION: Healing fractures of right superior and inferior pubic ramus.
== END 2023-07-18 15:57 | disposition home or self-care (01) ==
LOC: HO.HOSX 15:56
PROVIDERS: Visit Provider Physician Assistant
DX: S32.591D Other specified fracture of right pubis, subsequent encounter for fracture with routine healing (principal); S32.511D Fracture of superior rim of right pubis, subsequent encounter for fracture with routine healing; M25.559 Pain in unspecified hip; X58.XXXD Exposure to other specified factors, subsequent encounter
CPT/HCPCS: 72170; 99212

== ENCOUNTER 2023-09-16 11:19 | Outpatient (REF) | payer MEDICARE, SELFPAY ==
--- NOTE | ~2023-09-16 | MM_ITS ---
EXAMINATION: BONE DENSITOMETRY CLINICAL INDICATION: Osteoporosis. COMPARISON: Previous BD dated 03/28/2017 and baseline BD dated 06/08/2007. TECHNIQUE: Using a e[employer] DXA System (software version: 13.1) manufactured by [employer], dual-energy x-ray absorptiometry was performed of the lumbar spine and left hip. The images are of good technical quality. Summary results are attached. FINDINGS: LEFT FEMUR, NECK: Current: BMD 0.530 g/cm2, Z-score -1.0, T-score -3.7, osteoporosis. Prior: BMD 0.574 g/cm2. Baseline: BMD 0.612 g/cm2. LEFT FEMUR, TOTAL: Current: BMD 0.461 g/cm2, Z-score -1.8, T-score -4.3, osteoporosis, 16.2% decrease from previous, 21.3% decrease from baseline (<5% change is not significant). Prior: BMD 0.551 g/cm2. Baseline: BMD 0.586 g/cm2. AP SPINE L1-L4: Current: BMD 0.623 g/cm2, Z-score -2.0, T-score -4.6, osteoporosis, 16.0% decrease from previous, 19.5% decrease from baseline (<5% change is not significant). Prior: BMD 0.742 g/cm2. Baseline: BMD 0.774 g/cm2. IDENTIFIED RISK FACTORS: Early menopause, height loss, history of fracture (adult), osteoporosis, recurrent falls, right oophorectomy, secondary osteoporosis. HISTORY OF FRACTURE: Pelvis. MEDICATIONS: Calcium or multivitamin. Vitamin D. MM/XR DEXA axial skeleton IMPRESSION: 1. DIAGNOSIS: Severe osteoporosis based on the lowest T-score value of -4.6 in the spine and history of fracture of pelvis applying World Health Organization criteria. 2. 10-YEAR FRACTURE RISK PREDICTION, FRAX: According to the guidelines, FRAX calculation should only be performed on patients in the osteopenia bone density category. Therefore, FRAX was not performed on this patient. 3. Treatment Recommendations: NOF guidelines recommend consideration for treatment in postmenopausal women and men age 50 and older presenting with the following: -A hip or vertebral (clinical or morphometric) fracture. -T-score less than or equal to -2.5 at the femoral neck or spine after appropriate evaluation to exclude secondary causes. -Low bone mass at the hip or spine and a 10-year fracture probability by FRAX of greater than or equal to 3% for hip fracture or greater than or equal to 20% for major osteoporotic fracture based on the [place] adapted WHO algorithm. 4. Other Recommendations: All treatment decisions require clinical judgment and consideration of individual patient factors, including patient preferences, comorbidities, previous drug use, risk factors not captured in the FRAX model (e.g. frailty, falls, vitamin D deficiency, increased bone turnover, interval significant decline in bone density) and possible under or overestimation of fracture risk by FRAX. Additional medical evaluation for secondary cause of low bone mineral density may be appropriate. FUTURE SCAN RECOMMENDATION: People with diagnosed cases of osteoporosis or at high risk for fracture should have regular bone mineral density tests. For patients eligible for Medicare, routine testing is allowed once every 2 years. The testing frequency can be increased to one year for patients who have rapidly progressing disease, those who are receiving or discontinuing medical therapy to restore bone mass, or have additional risk factors.
== END 2023-09-16 11:20 | disposition home or self-care (01) ==
LOC: HO.MAMMO 11:19
PROVIDERS: PCP Family Medicine; Visit Provider Family Medicine
DX: Z13.820 Encounter for screening for osteoporosis (principal); M81.0 Age-related osteoporosis without current pathological fracture; Z78.0 Asymptomatic menopausal state
CPT/HCPCS: 77080

== ENCOUNTER 2023-09-26 10:38 | Outpatient (REF) | payer MEDICARE, SELFPAY ==
--- NOTE | ~2023-09-26 | XR_ITS ---
EXAMINATION: XR BILATERAL KNEES CLINICAL INFORMATION: Pain in left knee, unilateral primary osteoarthritis right knee. COMPARISON: 05/26/2020 right knee, 10/17/2014 bilateral knees. TECHNIQUE: AP standing, lateral and sunrise views of bilateral knees. FINDINGS: LEFT KNEE: The bones are diffusely demineralized. Vascular calcifications. Small joint effusion. Mild narrowing of the medial and lateral compartments with tiny marginal osteophytes. RIGHT KNEE: The bones are diffusely demineralized. Mild narrowing of the medial compartment with tiny medial marginal osteophytes. Small joint effusion. Vascular calcifications. Tiny calcification adjacent to the right lateral femoral condyle. Small calcification adjacent to the right medial femoral condyle. XR/XR knee RT 3V IMPRESSION: Mild degenerative changes in the bilateral knees.
--- NOTE | ~2023-09-26 | XR_ITS ---
EXAMINATION: XR BILATERAL KNEES CLINICAL INFORMATION: Pain in left knee, unilateral primary osteoarthritis right knee. COMPARISON: 05/26/2020 right knee, 10/17/2014 bilateral knees. TECHNIQUE: AP standing, lateral and sunrise views of bilateral knees. FINDINGS: LEFT KNEE: The bones are diffusely demineralized. Vascular calcifications. Small joint effusion. Mild narrowing of the medial and lateral compartments with tiny marginal osteophytes. RIGHT KNEE: The bones are diffusely demineralized. Mild narrowing of the medial compartment with tiny medial marginal osteophytes. Small joint effusion. Vascular calcifications. Tiny calcification adjacent to the right lateral femoral condyle. Small calcification adjacent to the right medial femoral condyle. XR/XR knee LT 3V IMPRESSION: Mild degenerative changes in the bilateral knees.
== END 2023-09-26 10:39 | disposition home or self-care (01) ==
LOC: HO.HOSX 10:38
PROVIDERS: Visit Provider Physician Assistant
DX: M17.11 Unilateral primary osteoarthritis, right knee (principal); M25.562 Pain in left knee
CPT/HCPCS: 73562; 99212

== ENCOUNTER 2023-09-26 10:43 | Outpatient (AMB) | payer MEDICARE, SELFPAY ==
--- NOTE | 2023-09-26 10:49 | A.OFFVIS_ITS ---
Intake Visit Reasons: New Prob - Bilateral Knee Pain Intake Note: Shana an 78 year old female who presents today for an evaluation of bilateral knee pain. Patient reports her pain has improved however her pain continues to fluctuate in intensity. Her right knee worse than left. Her pain is worse with activity such as walking. States her pain radiates up her leg into her pelvis/groin area as well as numbing sensation. Finds some relief with Tylenol and if her pain becomes intolerable she will take Tyelnol with codeine. Hx of knee injections years ago. Allergies morphine [Morphine] Allergy (Mild, Verified 09/26/23 11:05) hives oxycodone [From PERCODAN] Allergy (Mild, Verified 09/26/23 11:05) Rash tetracycline [Tetracycline] Allergy (Mild, Verified 09/26/23 11:05) rash diphtheria,pertussis (acell),tetanu Allergy (Unknown, Verified 09/26/23 11:05) Rash mirabegron [Myrbetriq] Allergy (Unknown, Verified 09/26/23 11:05) facial/ eye itching Penicillins [PENICILLINS] Allergy (Unknown, Verified 09/26/23 11:05) Rash HPI HPI New Prob - Bilateral Knee Pain: Details: 78-year-old female who presents to the office today for evaluation of bilateral knee pain for 2 weeks. She currently reports she has improvement in her pain however she continues to have pain in her knee that fluctuates in intensity and radiates up to her groin area. She states she has pain in her bilateral knees which is worse on her right knee. Her pain is aggravated with stair use and ambulation. She also c/o numbness and tingling in her right knee that radiates to her foot. She had cortisone injection the past which provided her relief. She finds mild relief with Tylenol and takes Tylenol with codeine when her pain becomes unbearable. [facility] Medical History Urinary frequency HTN (hypertension) Takotsubo cardiomyopathy CAD (coronary artery disease) Interstitial cystitis Nocturia Frequent urination Anxiety Interstitial cystitis Renal mass Surgical History Hx of appendectomy History of removal of ovarian cyst History of section Family History Mother Heart disease Stroke Epilepsia Father Heart disease Social History Household Members: None Housing: Other Housing Other:: [facility], [facility], [address] Do you presently have visiting nurse or other home services: No Alcohol intake: never Patient Tobacco Use Status: Former Tobacco user Quit Date: 1979 Smoked: 18 +/- service: No Review of Systems Const All systems reviewed & are unremarkable except as noted in HPI and below Physical Exam Extrem Other: Right knee: Skin intact, no erythema or joint effusion. Tenderness along the medial and lateral joint line. Full ROM with crepitus. Negative Kody?s. No ligamentous laxity. NVI. Results Reviewed Results Reviewed: Xrays were obtained in the office today and personally reviewed by me of cristian knee show mild PF oa Assessment & Plan Assessment & Plan (1) Osteoarthritis of right knee: Code(s): M17.11 - Unilateral primary osteoarthritis, right knee Category: Medical Plan We discussed options which include PT, NSAIDs and injections. The patient will defer on the injection today and proceed with PT and NSAIDs. A prescription for compound pain cream was sent to the pharmacy. If symptoms persist, the patient will contact me for an injection, otherwise, PRN. Orders: Orders XR knee RT 3V Today M17.11 - Unilateral primary osteoarthritis, right knee PT Evaluation and Treatment Today M17.11 - Unilateral primary osteoarthritis, right knee Patient Instructions: Scribed for Martina Conley PA-C, by Ham Sin medical device sales representative, on 09/14/2023 at 10:45 AM MATHIEU. Martina Caro PA-C, have personally reviewed and agree with the information entered by the scribe. Coding Level of Care Code Est Pt Level 3 (08546) Diagnoses Osteoarthritis of right knee M17.11
== END 2023-09-26 11:53 | disposition home or self-care (01) ==
PROVIDERS: PCP Family Medicine; Visit Provider Physician Assistant
DX: M17.11 Unilateral primary osteoarthritis, right knee (principal)
CPT/HCPCS: 99213

== ENCOUNTER 2023-11-16 10:27 | Outpatient (AMB) | payer MEDICARE, SELFPAY ==
--- NOTE | 2023-11-16 10:29 | A.OFFVIS_ITS ---
Vital Signs 11/16/23 10:30 Height 4 ft 7 in Weight 80 lb 3.972 oz BMI 18.6 BP 96/58 L Blood Pressure Location Lt brachial Position Sitting Pulse 63 Intake Visit Reasons: 2 year follow up Intake Note: 2yr f/u pt feeling good. Grocery Associate Required: No Accompanied by: Self / Same As Patient Allergies morphine [Morphine] Allergy (Mild, Verified 09/26/23 11:05) hives oxycodone [From PERCODAN] Allergy (Mild, Verified 09/26/23 11:05) Rash tetracycline [Tetracycline] Allergy (Mild, Verified 09/26/23 11:05) rash diphtheria,pertussis (acell),tetanu Allergy (Unknown, Verified 09/26/23 11:05) Rash mirabegron [Myrbetriq] Allergy (Unknown, Verified 09/26/23 11:05) facial/ eye itching Penicillins [PENICILLINS] Allergy (Unknown, Verified 09/26/23 11:05) Rash Medication List - Last Reconciled 11/16/23 by Chin Lind MD acetaminophen-codeine 300-30 mg 1 tab PO Q4H PRN alprazolam 0.125 - 0.25 mg PO BID PRN aspirin (Adult Low Dose Aspirin) 81 mg PO DAILY atorvastatin 40 mg PO DAILY calcitonin (salmon) 200 unit/actuation 1 spray intranasal (ALT) DAILY carvedilol 3.125 mg PO BID famotidine 20 mg PO BID nitroglycerin 0.4 mg sublingual Q5M PRN ondansetron 4 mg PO Q6H PRN oxybutynin chloride ER 2.5 mg PO DAILY HPI Comments Details: Shana comes for follow-up after 2 years. He has been overall doing well. She had a fall in April led to pelvic fracture and hospitalization and detention for about a month. Since then she has been doing well. She is back to her activity level. She says she has not had a fall risk anymore. She denies any exertional chest pain or shortness of breath. Takes all her medications. [facility] Medical History Sacral fracture, closed Fracture of inferior pubic ramus Fracture of superior pubic ramus Fall Urinary frequency HTN (hypertension) Takotsubo cardiomyopathy CAD (coronary artery disease) Interstitial cystitis Nocturia Frequent urination Anxiety Interstitial cystitis Renal mass Surgical History Hx of appendectomy History of removal of ovarian cyst History of section Family History Mother Heart disease Stroke Epilepsia Father Heart disease Social History Household Members: None Housing: Other Housing Other:: [facility], [facility], [address] Do you presently have visiting nurse or other home services: No Alcohol intake: never Patient Tobacco Use Status: Former Tobacco user Years Smoked: 18 +/- service: No Review of Systems Const Denies chills, Denies fatigue, Denies fever(s), Denies weight gain and Denies weight loss Card Denies chest pain, Denies leg edema, Denies lightheadedness, Denies palpitations , Denies dyspnea on exertion and Denies orthopnea Resp Denies cough and Denies dyspnea on exertion GI Reports melena, Denies hematochezia and Denies change in stool character Musc Denies muscle weakness and Denies radiating pain into limb Endo Denies fatigue and Denies palpitations Physical Exam Vital Signs: Last Vital Signs Pulse 63 11/16/23 10:30 BP 96/58 L 11/16/23 10:30 BMI result Body Mass Index 18.6 Const General: cooperative, comfortable, no acute distress, alert, awake and well groomed Nutritional Appearance: thin and other (Frail elderly woman) Orientation/consciousness: patient oriented x3 Limitations: no limitations Neck Neck: Yes trachea midline, Yes supple and Yes no JVD Carotids: no bruits Resp Effort & Inspection: normal respiratory effort Auscultation: clear to auscultation bilaterally Cardio Jugular venous distension: no JVD Palpation: normal PMI Rate: regular rate Rhythm: regular rhythm Heart sounds: S1 normal heart sound present and S2 normal heart sound present GI Auscultation: normal bowel sounds Skin General skin exam: no rashes or lesions noted Neuro General: patient oriented x3 and no focal motor deficits Extrem General: Yes no clubbing, cyanosis or edema Psych Appearance: grossly normal Office Procedures EKG Details: EKG shows normal sinus rhythm normal EKG at 63 beats per minute [id number], Complete Assessment & Plan Assessment & Plan (1) CAD (coronary artery disease): Comment: nonobstructive, by cardiac catheterization, done for NSTEMI Code(s): I25.10 - Atherosclerotic heart disease of [place] coronary artery without angina pectoris Category: Medical Plan: Nonobstructive CAD diagnose the time she had presentation consistent with NSTEMI but subsequently diagnose as takotsubo cardiomyopathy. Since then she has had no recurrent events on carvedilol therapy. She is participate in stress mitigation strategies. Continue carvedilol therapy. Continue maintain activity level as tolerated. Continue low-dose aspirin therapy. Continue statin therapy with target goal LDL less than 70 mg/dL. Will follow up in the clinic in 2 years time, sooner p.r.n.. Thank you for allowing me to partake in her care Coding Level of Care Code Est Pt Level 3 (87768) Diagnoses CAD (coronary artery disease) I25.10 CPT Codes EKG - CPT: 35612-Linwrwalasusopfek, Complete ([id number])
[2023-11-16 10:30] VITALS: BP 96/58; PULSE 63; BMI 18.6
== END 2023-11-16 10:56 | disposition home or self-care (01) ==
PROVIDERS: PCP Family Medicine; Visit Provider Internal Medicine Cardiovascular Disease
DX: I25.10 Atherosclerotic heart disease of native coronary artery without angina pectoris (principal)
CPT/HCPCS: 93010; 99213

== ENCOUNTER → 2023-11-16 10:27 | Outpatient (BNVA) | payer MEDICARE, SELFPAY | PROVIDERS: PCP Family Medicine; Visit Provider Internal Medicine Cardiovascular Disease | DX: I25.10 Atherosclerotic heart disease of native coronary artery without angina pectoris (principal) | CPT/HCPCS: 93005; 99212 ==